=== PATIENT | male | born 1960 | race African-American/Black ===

== ENCOUNTER 2017-04-30 08:24 | Inpatient (IN) ==
[2017-04-30] MEDS ORDERED: NITROGLYCERIN 2% OINT 1 INCH/GM PACK TOP STA (08:52)
[2017-04-30] MEDS ORDERED: ASPIRIN 325 MG TABLET PO STA (08:52)
[2017-04-30 09:01] LABS: Basophils # 0.1 10*3/uL (0.0-0.2); Basophils % 1.9 % (0.0-0.8); Eosinophils # 0.4 10*3/uL (0.0-0.87); Eosinophils % 6.1 % (0.00-10.9); Hematocrit 48.3 VOL% (42.0-52.0); Hemoglobin 15.9 GM/DL (14.0-18.0); Immature Granulocytes % 0.2 %; Immature Granulocytes Absolute 0.01 #; Lymphocytes # 2.4 10*3/uL (1.4-4.0); Lymphocytes % 42.3 % (21.2-54.2); Mean Corpuscular HGB Conc 32.9 GM/DL (32-36); Mean Corpuscular Hemoglobin 29 PG (27-34); Mean Corpuscular Volume 87.2 FL (87-102); Mean Platelet Volume 11.2 FL (9.6-12.0); Monocytes # 0.6 10*3/uL (0.11-0.8); Monocytes % 9.6 % (1.7-12.7); Neutrophils # 2.3 10*3/uL (1.4-7.4); Neutrophils % 39.9 % (38.7-73.9); Platelet Count 224 T/CUMM (130-400); Red Blood Count 5.54 MC/CUMM (3.8-5.5); White Blood Count 5.7 T/CUMM (4-12)
[2017-04-30] MEDS ORDERED: NITROGLYCERIN 2% OINT 1 INCH/GM PACK TOP ONE (09:06)
[2017-04-30] MEDS ORDERED: ASPIRIN 325 MG TABLET ONE (09:06)
[2017-04-30 09:19] LABS: Albumin 3.3 G/DL (3.4-5.0); Bilirubin,Total 0.5 MG/DL (0.2-1.0); Calcium 8.8 MG/DL (8.5-10.1); Magnesium 1.9 MG/DL (1.8-2.4); Osmolality,Calculated 279.4 MOS/KG (273-304); Potassium 3.9 MMOL/L (3.5-5.1); Total Protein 7.9 G/DL (6.4-8.3)
[2017-04-30 09:20] LABS: PT Patient Result 10.6 SECS; Partial Thromboplastin Time 25.9 SECS (0-40)
[2017-04-30] MEDS ORDERED: MAGNESIUM SULF RIDER 2 GM in PREMIX 1 EACH IV PRN (09:57)
[2017-04-30] MEDS ORDERED: MAGNESIUM SULF RIDER 4 GM in PREMIX 1 EACH IV PRN (09:57)
[2017-04-30] MEDS ORDERED: ENOXAPARIN 100 MG/ML SYRINGE SUBCUT SCH (10:00)
[2017-04-30] MEDS ORDERED: traMADol 50 MG TABLET PO PRN (10:02)
[2017-04-30] MEDS ORDERED: ENOXAPARIN 100 MG/ML SYRINGE SUBCUT ONE (10:38)
[2017-04-30 10:43] LABS: Barbiturates Screen,Urine Negative (Negative); Benzodiazepines Screen,Urine Negative (Negative); Cannabinoid Screen,Urine Negative (Negative); Opiate Screen,Urine Positive (Negative); Phencyclidine Screen,Urine Negative (Negative)
[2017-04-30] MEDS ORDERED: CLOPIDOGREL 300 MG TABLET PO ONE (16:00)
[2017-04-30] MEDS: ATORVASTATIN 80 MG TABLET PO SCH (16:09)
[2017-04-30 17:23] LABS: CKMB % 1.8 %
[2017-04-30 17:26] LABS: Troponin I Only 0.433 NG/ML (0.00-0.045)
[2017-04-30] MEDS: NICOTINE 14 MG/24 HR PATCH TRANSDERM SCH (17:29)
[2017-04-30] MEDS: CARVEDILOL 25 MG TABLET PO SCH (20:40)
[2017-04-30] MEDS: ENOXAPARIN 80 MG/0.8 ML SYRINGE SUBCUT SCH (20:40)
[2017-04-30] MEDS: valACYclovir 500 MG TABLET PO SCH (20:40)
[2017-04-30] MEDS: hydrALAZINE 25 MG TABLET PO SCH (20:40)
[2017-04-30] MEDS ORDERED: ATORVASTATIN 40 MG TABLET PO SCH (21:00)
[2017-04-30] MEDS ORDERED: traZODone 50 MG TABLET PO SCH (21:00)
[2017-05-01 05:49] LABS: Basophils # 0.1 10*3/uL (0.0-0.2); Basophils % 1.5 % (0.0-0.8); Eosinophils # 0.3 10*3/uL (0.0-0.87); Eosinophils % 4.7 % (0.00-10.9); Hematocrit 46.4 VOL% (42.0-52.0); Hemoglobin 15.4 GM/DL (14.0-18.0); Immature Granulocytes % 0.3 %; Immature Granulocytes Absolute 0.02 #; Lymphocytes % 49.2 % (21.2-54.2); Mean Corpuscular HGB Conc 33.2 GM/DL (32-36); Mean Corpuscular Hemoglobin 29 PG (27-34); Mean Corpuscular Volume 87.9 FL (87-102); Mean Platelet Volume 12.1 FL (9.6-12.0); Monocytes # 0.6 10*3/uL (0.11-0.8); Monocytes % 9.3 % (1.7-12.7); Neutrophils # 2.1 10*3/uL (1.4-7.4); Platelet Count 227 T/CUMM (130-400); Red Blood Count 5.28 MC/CUMM (3.8-5.5)
[2017-05-01 06:47] LABS: Albumin 3.1 G/DL (3.4-5.0); Alkaline Phosphatase 117 U/L (45-117); Aspartate Amino Transferase 28 U/L (0-37); Blood Urea Nitrogen 13 MG/DL (7-18); Calcium 8.8 MG/DL (8.5-10.1); Glucose 145 MG/DL (74-106); Osmolality,Calculated 275.8 MOS/KG (273-304); Sodium 137 MMOL/L (136-145); Total Protein 7.3 G/DL (6.4-8.3)
[2017-05-01 07:28] LABS: Alanine Aminotransferase 29 U/L (16-61); Troponin I Only 0.226 NG/ML (0.00-0.045)
[2017-05-01] MEDS ORDERED: PANTOPRAZOLE 40 MG TABLET PO SCH (09:00)
[2017-05-01] MEDS ORDERED: DULoxetine 30 MG CAPSULE PO SCH (09:00)
[2017-05-01] MEDS ORDERED: ASPIRIN EC 81 MG TABLET PO SCH (09:00)
[2017-05-01] MEDS ORDERED: TAMSULOSIN 0.4 MG CAPSULE PO SCH (09:00)
[2017-05-01] MEDS ORDERED: LOSARTAN 50 MG TABLET PO SCH (09:00)
[2017-05-01] MEDS ORDERED: GABAPENTIN 300 MG CAPSULE PO SCH (09:00)
[2017-05-01] MEDS ORDERED: amLODIPine 10 MG TABLET PO SCH (09:00)
[2017-05-01] MEDS ORDERED: CLOPIDOGREL 75 MG TABLET PO SCH (09:00)
[2017-05-01] MEDS ORDERED: TRIAMTERENE/HCTZ 37.5-25 MG TABLET PO SCH (09:00)
[2017-05-01] MEDS: hydrALAZINE 25 MG TABLET PO SCH (09:03)
[2017-05-01] MEDS: ATORVASTATIN 80 MG TABLET PO SCH (09:04)
[2017-05-01] MEDS: NICOTINE 14 MG/24 HR PATCH TRANSDERM SCH (09:04)
[2017-05-01] MEDS: valACYclovir 500 MG TABLET PO SCH (09:04)
[2017-05-01] MEDS: ENOXAPARIN 80 MG/0.8 ML SYRINGE SUBCUT SCH (09:05)
[2017-05-01] MEDS: CARVEDILOL 25 MG TABLET PO SCH (09:05)
[2017-05-01 12:37] VITALS: BP 130/64
== END 2017-05-01 14:00 | disposition home or self-care (01) | DRG 282 ==
LOC: EDBD → EDUNIT# → N.ED 08:24 → N.EDINP 09:57 → N.TELES 12:35
PROVIDERS: ADMIT Internal Medicine Cardiovascular Disease; ATTEND Internal Medicine Cardiovascular Disease

== ENCOUNTER 2019-06-01 21:34 | Inpatient (IN) ==
[2019-06-01] MEDS ORDERED: ONDANSETRON 4 MG/2 ML VIAL IV STA (22:26)
[2019-06-01] MEDS ORDERED: PANTOPRAZOLE 40 MG VIAL IV STA (22:26)
[2019-06-01 22:27] LABS: Basophils # 0.1 10*3/uL (0.0-0.2); Eosinophils # 0.3 10*3/uL (0.0-0.87); Eosinophils % 4.2 % (0.00-10.9); Hematocrit 44.6 VOL% (42.0-52.0); Hemoglobin 13.8 GM/DL (14.0-18.0); Immature Granulocytes % 0.3 %; Immature Granulocytes Absolute 0.02 #; Lymphocytes # 2.3 10*3/uL (1.4-4.0); Lymphocytes % 33.7 % (21.2-54.2); Mean Corpuscular HGB Conc 30.9 GM/DL (32-36); Mean Corpuscular Volume 83.7 FL (87-102); Mean Platelet Volume 10.7 FL (9.6-12.0); Neutrophils % 53.8 % (38.7-73.9); Platelet Count 252 T/CUMM (130-400); Red Blood Count 5.33 MC/CUMM (3.8-5.5); White Blood Count 6.7 T/CUMM (4-12)
[2019-06-01 22:32] LABS: Apearance,Urine CLEAR (Clear); Bacteria,Urine Occasional /HPF (Few); Bilirubin,Urine Negative (Negative); Blood, Urine Negative (Negative); Glucose,Urine (UA) Negative (Negative); Ketones,Urine Negative (Negative); Nitrite,Urine Negative (Negative); Protein,Urine Negative; RBC,Urine 1 /HPF (0-4); Squamous Epithelial Cell,Urine Occasional /HPF (0-10); Urine Color Straw (Yellow); Urine Specific Gravity 1.013 (1.001-1.035); Urine Urobilinogen < 2.0 EU/DL (0.2-1.0); WBC,Urine <1 /HPF (0-6)
[2019-06-01] MEDS ORDERED: hydrALAZINE 20 MG/1 ML VIAL IV STA (22:32)
[2019-06-01 22:38] LABS: Barbiturates Screen,Urine Negative (Negative); Benzodiazepines Screen,Urine Negative (Negative); Cannabinoid Screen,Urine Negative (Negative); Opiate Screen,Urine Negative (Negative); Phencyclidine Screen,Urine Negative (Negative)
[2019-06-01 22:49] LABS: INR 1.2; PT Patient Result 13.3 SECS (9.6-12.2); Partial Thromboplastin Time 23.1 SECS (20.8-36.0)
[2019-06-01 23:05] LABS: Alanine Aminotransferase 25 U/L (16-61); Albumin 3.2 G/DL (3.4-5.0); Alkaline Phosphatase 120 U/L (45-117); Aspartate Amino Transferase 23 U/L (0-37); Bilirubin,Total < 0.39 MG/DL (0.2-1.0); Blood Urea Nitrogen 13 MG/DL (7-18); Calcium 8.5 MG/DL (8.5-10.1); Estimated Glom Filtration Rate 105 ML/MIN; Glucose 135 MG/DL (74-106); Osmolality,Calculated 280.4 MOS/KG (273-304); Total Protein 8.4 G/DL (6.4-8.3)
[2019-06-01] MEDS ORDERED: HEPARIN 1,000 UNIT/1 ML VIAL IV STA (23:32)
[2019-06-01 23:58] LABS: Troponin I 0.052 NG/ML (0.00-0.045)
[2019-06-02] MEDS ORDERED: HEPARIN 1,000 UNIT/1 ML VIAL ONE (00:24)
[2019-06-02] MEDS: niCARdipine INJ 25 MG in SODIUM CHLORIDE 0.9% 240 ML IV PRN ×4 (01:14→11:51)
[2019-06-02] MEDS: HEPARIN DRIP 25,000 UNITS/500 ML PREMIX IV SCH (01:38)
[2019-06-02 01:45] LABS: INR 1.5; Partial Thromboplastin Time 28.8 SECS (20.8-36.0)
[2019-06-02] MEDS ORDERED: MORPHINE 4 MG/1 ML VIAL IV STA (01:51)
[2019-06-02] MEDS ORDERED: GLUCAGON 1 MG VIAL IM PRN (02:23)
[2019-06-02] MEDS ORDERED: DEXTROSE 10% 250 ML BAG IV PRN (02:23)
[2019-06-02] MEDS ORDERED: NICOTINE 21 MG/24 HR PATCH TRANSDERM PRN (02:23)
[2019-06-02] MEDS ORDERED: ONDANSETRON 4 MG/2 ML VIAL IV PRN (02:23)
[2019-06-02 03:26] LABS: Risk Ratio 9.91; VLDL CHOLESTEROL 126.4 MG/DL
[2019-06-02 06:54] LABS: INR 1.6; PT Patient Result 17.3 SECS (9.6-12.2)
[2019-06-02 06:55] LABS: Partial Thromboplastin Time 43.5 SECS (20.8-36.0)
[2019-06-02] MEDS: INSULIN REGULAR 100 UNIT/ML SUBCUT SCH ×4 (08:13→20:50)
[2019-06-02 13:21] LABS: INR 1.7; PT Patient Result 18.3 SECS (9.6-12.2)
[2019-06-02 13:23] LABS: Partial Thromboplastin Time 41.3 SECS (20.8-36.0)
[2019-06-02] MEDS: amLODIPine 10 MG TABLET PO SCH (13:24)
[2019-06-02] MEDS: LOSARTAN 50 MG TABLET PO SCH (13:24)
[2019-06-02] MEDS: hydrALAZINE 25 MG TABLET PO SCH ×2 (15:38→20:24)
[2019-06-02] MEDS: carvediloL 12.5 MG TABLET PO SCH (18:35)
[2019-06-02 19:37] LABS: INR 1.8; PT Patient Result 19.2 SECS (9.6-12.2)
[2019-06-02 19:46] LABS: Partial Thromboplastin Time 41.9 SECS (20.8-36.0)
[2019-06-02] MEDS: ATORVASTATIN 80 MG TABLET PO SCH (20:24)
[2019-06-02] MEDS ORDERED: ATORVASTATIN 40 MG TABLET PO SCH (21:00)
[2019-06-03] MEDS: MORPHINE 4 MG/1 ML VIAL IV PRN ×3 (00:22→16:25)
[2019-06-03 01:20] LABS: INR 2.1
[2019-06-03 01:21] LABS: PT Patient Result 22.2 SECS (9.6-12.2)
[2019-06-03] MEDS: HEPARIN DRIP 25,000 UNITS/500 ML PREMIX IV SCH ×2 (03:30→13:57)
[2019-06-03 07:12] LABS: INR 1.8
[2019-06-03 07:22] LABS: Partial Thromboplastin Time 48.2 SECS (20.8-36.0)
[2019-06-03] MEDS: carvediloL 12.5 MG TABLET PO SCH (07:25)
[2019-06-03] MEDS: INSULIN REGULAR 100 UNIT/ML SUBCUT SCH ×4 (07:25→21:41)
[2019-06-03] MEDS: LOSARTAN 50 MG TABLET PO SCH (08:15)
[2019-06-03] MEDS: ASPIRIN EC 81 MG TABLET PO SCH (08:15)
[2019-06-03] MEDS: hydrALAZINE 25 MG TABLET PO SCH ×3 (08:16→21:41)
[2019-06-03] MEDS: amLODIPine 10 MG TABLET PO SCH (08:16)
[2019-06-03] MEDS ORDERED: ALBUTEROL 2.5 MG/3 ML NEB RESP TX PRN (08:18)
[2019-06-03] MEDS: GABAPENTIN 100 MG CAPSULE PO SCH ×3 (08:47→21:41)
[2019-06-03] MEDS: DULoxetine 30 MG CAPSULE PO SCH (08:47)
[2019-06-03] MEDS: TRIAMTERENE/HCTZ 37.5-25 MG TABLET PO SCH (12:59)
[2019-06-03 13:31] LABS: INR 1.7; PT Patient Result 18.5 SECS (9.6-12.2)
[2019-06-03] MEDS ORDERED: MAGNESIUM HYDROXIDE SUSP 30 ML UDCUP PO ONE (14:29)
[2019-06-03] MEDS ORDERED: WARFARIN 5 MG TABLET PO SCH (18:00)
[2019-06-03 19:59] LABS: INR 1.6; PT Patient Result 17.5 SECS (9.6-12.2); Partial Thromboplastin Time 49.7 SECS (20.8-36.0)
[2019-06-03] MEDS: ATORVASTATIN 80 MG TABLET PO SCH (21:40)
[2019-06-03] MEDS: traZODone 50 MG TABLET PO SCH (21:40)
[2019-06-04] MEDS: MORPHINE 4 MG/1 ML VIAL IV PRN ×2 (00:03→22:19)
[2019-06-04 01:55] LABS: Basophils # 0.1 10*3/uL (0.0-0.2); Basophils % 0.9 % (0.0-0.8); Eosinophils # 0.2 10*3/uL (0.0-0.87); Eosinophils % 2.5 % (0.00-10.9); Hematocrit 45.7 VOL% (42.0-52.0); Hemoglobin 14.4 GM/DL (14.0-18.0); Immature Granulocytes % 0.1 %; Immature Granulocytes Absolute 0.01 #; Lymphocytes # 2.4 10*3/uL (1.4-4.0); Lymphocytes % 31.6 % (21.2-54.2); Mean Corpuscular HGB Conc 31.5 GM/DL (32-36); Mean Platelet Volume 10.4 FL (9.6-12.0); Monocytes % 8.7 % (1.7-12.7); Neutrophils % 56.2 % (38.7-73.9); Platelet Count 257 T/CUMM (130-400); Red Blood Count 5.57 MC/CUMM (3.8-5.5); Red Cell Distribution Width 18.8 % (9.3-17.3); White Blood Count 7.6 T/CUMM (4-12)
[2019-06-04 02:06] LABS: INR 1.7; PT Patient Result 17.9 SECS (9.6-12.2)
[2019-06-04 02:10] LABS: Calcium 8.8 MG/DL (8.5-10.1); Osmolality,Calculated 261.5 MOS/KG (273-304)
[2019-06-04 02:14] LABS: Partial Thromboplastin Time 51.1 SECS (20.8-36.0)
[2019-06-04] MEDS: HEPARIN DRIP 25,000 UNITS/500 ML PREMIX IV SCH ×2 (02:51→23:36)
[2019-06-04] MEDS: INSULIN REGULAR 100 UNIT/ML SUBCUT SCH ×4 (08:04→21:13)
[2019-06-04] MEDS ORDERED: LACTULOSE 20 GM/30 ML UDCUP PO PRN (08:51)
[2019-06-04] MEDS: TRIAMTERENE/HCTZ 37.5-25 MG TABLET PO SCH (08:53)
[2019-06-04] MEDS: amLODIPine 10 MG TABLET PO SCH (08:53)
[2019-06-04] MEDS: ASPIRIN EC 81 MG TABLET PO SCH (08:53)
[2019-06-04] MEDS: LOSARTAN 50 MG TABLET PO SCH (08:54)
[2019-06-04] MEDS: DULoxetine 30 MG CAPSULE PO SCH (08:54)
[2019-06-04] MEDS: GABAPENTIN 100 MG CAPSULE PO SCH ×3 (08:54→21:12)
[2019-06-04] MEDS: hydrALAZINE 25 MG TABLET PO SCH ×3 (08:54→21:13)
[2019-06-04] MEDS ORDERED: WARFARIN 7.5 MG TABLET PO SCH (18:00)
[2019-06-04] MEDS: ATORVASTATIN 80 MG TABLET PO SCH (21:12)
[2019-06-04] MEDS: traZODone 50 MG TABLET PO SCH (21:12)
[2019-06-05 05:01] LABS: Basophils # 0.1 10*3/uL (0.0-0.2); Basophils % 0.6 % (0.0-0.8); Eosinophils # 0.1 10*3/uL (0.0-0.87); Eosinophils % 1.7 % (0.00-10.9); Hematocrit 44.6 VOL% (42.0-52.0); Hemoglobin 14.1 GM/DL (14.0-18.0); Immature Granulocytes % 0.5 %; Immature Granulocytes Absolute 0.04 #; Lymphocytes # 2.3 10*3/uL (1.4-4.0); Lymphocytes % 28.8 % (21.2-54.2); Mean Corpuscular HGB Conc 31.6 GM/DL (32-36); Mean Corpuscular Volume 81.8 FL (87-102); Mean Platelet Volume 11.2 FL (9.6-12.0); Monocytes % 12.4 % (1.7-12.7); Platelet Count 246 T/CUMM (130-400); Red Blood Count 5.45 MC/CUMM (3.8-5.5); Red Cell Distribution Width 17.5 % (9.3-17.3); White Blood Count 7.8 T/CUMM (4-12)
[2019-06-05 05:10] LABS: INR 1.5; PT Patient Result 16.4 SECS (9.6-12.2)
[2019-06-05 05:27] LABS: Calcium 8.9 MG/DL (8.5-10.1); Osmolality,Calculated 256.1 MOS/KG (273-304)
[2019-06-05] MEDS: INSULIN REGULAR 100 UNIT/ML SUBCUT SCH ×3 (08:05→18:10)
[2019-06-05] MEDS: GABAPENTIN 100 MG CAPSULE PO SCH ×3 (09:53→22:54)
[2019-06-05] MEDS: TRIAMTERENE/HCTZ 37.5-25 MG TABLET PO SCH (09:53)
[2019-06-05] MEDS: hydrALAZINE 25 MG TABLET PO SCH ×3 (09:54→22:51)
[2019-06-05] MEDS: ASPIRIN EC 81 MG TABLET PO SCH (09:54)
[2019-06-05] MEDS: amLODIPine 10 MG TABLET PO SCH (09:54)
[2019-06-05] MEDS: DULoxetine 30 MG CAPSULE PO SCH (09:54)
[2019-06-05] MEDS: LOSARTAN 50 MG TABLET PO SCH (09:54)
[2019-06-05] MEDS: ACETAMINOPHEN 325 MG TABLET PO PRN ×2 (10:48→18:55)
[2019-06-05] MEDS: HEPARIN DRIP 25,000 UNITS/500 ML PREMIX IV SCH (18:53)
[2019-06-05] MEDS: traZODone 50 MG TABLET PO SCH (22:52)
[2019-06-05] MEDS: ATORVASTATIN 80 MG TABLET PO SCH (22:55)
[2019-06-06] MEDS: HEPARIN DRIP 25,000 UNITS/500 ML PREMIX IV SCH (01:13)
[2019-06-06] MEDS: INSULIN REGULAR 100 UNIT/ML SUBCUT SCH ×4 (01:13→17:01)
[2019-06-06 04:55] LABS: Basophils # 0.1 10*3/uL (0.0-0.2); Basophils % 0.7 % (0.0-0.8); Eosinophils # 0.2 10*3/uL (0.0-0.87); Hematocrit 48.8 VOL% (42.0-52.0); Hemoglobin 15.5 GM/DL (14.0-18.0); Immature Granulocytes % 0.4 %; Immature Granulocytes Absolute 0.03 #; Lymphocytes # 1.8 10*3/uL (1.4-4.0); Lymphocytes % 23.8 % (21.2-54.2); Mean Corpuscular HGB Conc 31.8 GM/DL (32-36); Mean Corpuscular Volume 81.6 FL (87-102); Mean Platelet Volume 12.5 FL (9.6-12.0); Monocytes % 9.2 % (1.7-12.7); Neutrophils % 63.9 % (38.7-73.9); Platelet Count 222 T/CUMM (130-400); Red Blood Count 5.98 MC/CUMM (3.8-5.5); Red Cell Distribution Width 18.4 % (9.3-17.3); White Blood Count 7.4 T/CUMM (4-12)
[2019-06-06 04:56] LABS: INR 1.6
[2019-06-06 05:11] LABS: Calcium 9.3 MG/DL (8.5-10.1); Osmolality,Calculated 249.6 MOS/KG (273-304)
[2019-06-06 06:42] LABS: Rapid Plasma Reagin Confirm REACTIVE (Nonreactive)
[2019-06-06] MEDS: TRIAMTERENE/HCTZ 37.5-25 MG TABLET PO SCH (09:58)
[2019-06-06] MEDS: DULoxetine 30 MG CAPSULE PO SCH (09:58)
[2019-06-06] MEDS: amLODIPine 10 MG TABLET PO SCH (09:58)
[2019-06-06] MEDS: GABAPENTIN 100 MG CAPSULE PO SCH ×3 (09:58→23:19)
[2019-06-06] MEDS: LOSARTAN 50 MG TABLET PO SCH (09:58)
[2019-06-06] MEDS: ASPIRIN EC 81 MG TABLET PO SCH (09:58)
[2019-06-06] MEDS: hydrALAZINE 25 MG TABLET PO SCH ×3 (09:58→23:14)
[2019-06-06] MEDS: ACETAMINOPHEN 325 MG TABLET PO PRN (09:59)
[2019-06-06] MEDS ORDERED: BICILLIN LA 2,400,000 UNIT/4 ML SYRINGE IM SCH (10:30)
[2019-06-06] MEDS: APIXABAN 5 MG TABLET PO SCH ×2 (12:48→23:15)
[2019-06-06] MEDS: traZODone 50 MG TABLET PO SCH (23:19)
[2019-06-06] MEDS: ATORVASTATIN 80 MG TABLET PO SCH (23:19)
[2019-06-07] MEDS: INSULIN REGULAR 100 UNIT/ML SUBCUT SCH ×5 (00:04→21:29)
[2019-06-07 05:29] LABS: INR 1.3; PT Patient Result 14.5 SECS (9.6-12.2)
[2019-06-07] MEDS: LOSARTAN 50 MG TABLET PO SCH (09:08)
[2019-06-07] MEDS: DULoxetine 30 MG CAPSULE PO SCH (09:09)
[2019-06-07] MEDS: ASPIRIN EC 81 MG TABLET PO SCH (09:09)
[2019-06-07] MEDS: TRIAMTERENE/HCTZ 37.5-25 MG TABLET PO SCH (09:09)
[2019-06-07] MEDS: amLODIPine 10 MG TABLET PO SCH (09:09)
[2019-06-07] MEDS: APIXABAN 5 MG TABLET PO SCH ×2 (09:09→21:29)
[2019-06-07] MEDS: GABAPENTIN 100 MG CAPSULE PO SCH ×3 (09:09→21:29)
[2019-06-07] MEDS: hydrALAZINE 25 MG TABLET PO SCH ×3 (09:09→21:29)
[2019-06-07] MEDS: traZODone 50 MG TABLET PO SCH (21:29)
[2019-06-07] MEDS: ATORVASTATIN 80 MG TABLET PO SCH (21:29)
[2019-06-08 04:57] LABS: Basophils # 0.1 10*3/uL (0.0-0.2); Basophils % 0.5 % (0.0-0.8); Eosinophils # 0.2 10*3/uL (0.0-0.87); Hematocrit 43.7 VOL% (42.0-52.0); Hemoglobin 14.4 GM/DL (14.0-18.0); Immature Granulocytes % 0.5 %; Immature Granulocytes Absolute 0.05 #; Lymphocytes # 1.6 10*3/uL (1.4-4.0); Lymphocytes % 16.5 % (21.2-54.2); Mean Corpuscular Volume 79.5 FL (87-102); Mean Platelet Volume 11.7 FL (9.6-12.0); Monocytes % 10.3 % (1.7-12.7); Neutrophils % 70.2 % (38.7-73.9); Platelet Count 249 T/CUMM (130-400); Red Cell Distribution Width 18.3 % (9.3-17.3); White Blood Count 9.7 T/CUMM (4-12)
[2019-06-08 05:30] LABS: Albumin 3.3 G/DL (3.4-5.0); Bilirubin,Total 1.9 MG/DL (0.2-1.0); Calcium 9.4 MG/DL (8.5-10.1); Osmolality,Calculated 253.2 MOS/KG (273-304); Total Protein 8.8 G/DL (6.4-8.3)
[2019-06-08] MEDS: INSULIN REGULAR 100 UNIT/ML SUBCUT SCH ×3 (07:30→15:47)
[2019-06-08] MEDS: ASPIRIN EC 81 MG TABLET PO SCH (09:30)
[2019-06-08] MEDS: TRIAMTERENE/HCTZ 37.5-25 MG TABLET PO SCH (09:30)
[2019-06-08] MEDS: amLODIPine 10 MG TABLET PO SCH (09:30)
[2019-06-08] MEDS: GABAPENTIN 100 MG CAPSULE PO SCH ×2 (09:30→15:10)
[2019-06-08] MEDS: DULoxetine 30 MG CAPSULE PO SCH (09:30)
[2019-06-08] MEDS: APIXABAN 5 MG TABLET PO SCH (09:30)
[2019-06-08] MEDS: hydrALAZINE 25 MG TABLET PO SCH ×2 (09:30→15:09)
[2019-06-08] MEDS: LOSARTAN 50 MG TABLET PO SCH (09:30)
[2019-06-08 16:09] VITALS: BP 86/44
[2019-06-12] MEDS ORDERED: BICILLIN LA 2,400,000 UNIT/4 ML SYRINGE IM SCH (15:08)
== END 2019-06-08 17:31 | DRG 65 ==
LOC: EDBD → EDUNIT# → N.ED 21:34 → SUATTDRO 06-02 02:23 → N.EDINP 06-02 02:23 → N.ICU 06-02 03:04 → N.TELEN 06-03 10:56
PROVIDERS: ADMIT Internal Medicine Geriatric Medicine; ATTEND Internal Medicine

== ENCOUNTER 2019-06-20 15:19 | Inpatient (IN) ==
[2019-06-20 16:22] LABS: Basophils # 0.1 10*3/uL (0.0-0.2); Basophils % 0.4 % (0.0-0.8); Eosinophils # 0.1 10*3/uL (0.0-0.87); Eosinophils % 0.3 % (0.00-10.9); Hematocrit 24.7 VOL% (42.0-52.0); Hemoglobin 7.7 GM/DL (14.0-18.0); Immature Granulocytes % 0.9 %; Immature Granulocytes Absolute 0.18 #; Lymphocytes # 2.2 10*3/uL (1.4-4.0); Lymphocytes % 11.1 % (21.2-54.2); Mean Corpuscular HGB Conc 31.2 GM/DL (32-36); Mean Corpuscular Volume 85.2 FL (87-102); Monocytes % 5.3 % (1.7-12.7); Platelet Count 582 T/CUMM (130-400); Red Cell Distribution Width 18.4 % (9.3-17.3); White Blood Count 20.1 T/CUMM (4-12)
[2019-06-20] MEDS ORDERED: SODIUM CHLORIDE 0.9% 1,000 ML IV STA ×2 (16:33→17:53)
[2019-06-20 16:36] LABS: Calcium 9.2 MG/DL (8.5-10.1); Osmolality,Calculated 288.8 MOS/KG (273-304)
[2019-06-20 17:09] LABS: Anisocytosis Slight; Hypochromasia Slight; Lymphocytes 9 % (20-55); Microcytosis Slight; Platelet Estimate Increased; Polychromasia Few; Segmented Neutrophils 89 % (50-85); Total Cells Counted 100
[2019-06-20] MEDS ORDERED: LABETALOL 100 MG/20 ML VIAL IV PRN (18:41)
[2019-06-20] MEDS ORDERED: GLUCAGON 1 MG VIAL IM PRN (18:41)
[2019-06-20] MEDS ORDERED: ONDANSETRON 4 MG/2 ML VIAL IV PRN (18:41)
[2019-06-20] MEDS ORDERED: DEXTROSE 10% 250 ML BAG IV PRN (18:41)
[2019-06-20] MEDS ORDERED: SODIUM CHLORIDE 0.9% 1,000 ML IV PRN (18:58)
[2019-06-20] MEDS ORDERED: FUROSEMIDE 20 MG/2 ML VIAL IV PRN (18:58)
[2019-06-20 19:35] LABS: Risk Ratio 3.07; VLDL CHOLESTEROL 21.4 MG/DL
[2019-06-20] MEDS: SODIUM CHLORIDE 0.9% 1,000 ML IV SCH (22:16)
[2019-06-20] MEDS: PIPERACILLIN/TAZOBACTAM 3,375 MG in SODIUM CHLORIDE 0.9% 100 ML IV SCH (22:17)
[2019-06-20] MEDS: INSULIN LISPRO 100 UNIT/ML SUBCUT SCH (22:17)
[2019-06-21] MEDS: SODIUM CHLORIDE 0.9% 1,000 ML IV SCH ×2 (03:49→15:50)
[2019-06-21 04:06] LABS: Hematocrit 26.2 VOL% (42.0-52.0); Hemoglobin 8.2 GM/DL (14.0-18.0)
[2019-06-21] MEDS: PIPERACILLIN/TAZOBACTAM 3,375 MG in SODIUM CHLORIDE 0.9% 100 ML IV SCH (04:52)
[2019-06-21 06:01] LABS: Basophils # 0.1 10*3/uL (0.0-0.2); Basophils % 0.5 % (0.0-0.8); Eosinophils # 0.1 10*3/uL (0.0-0.87); Eosinophils % 0.7 % (0.00-10.9); Hemoglobin 8.2 GM/DL (14.0-18.0); Immature Granulocytes % 0.7 %; Immature Granulocytes Absolute 0.11 #; Lymphocytes # 1.7 10*3/uL (1.4-4.0); Lymphocytes % 10.8 % (21.2-54.2); Mean Corpuscular HGB Conc 31.5 GM/DL (32-36); Mean Corpuscular Volume 85.8 FL (87-102); Mean Platelet Volume 9.1 FL (9.6-12.0); Monocytes % 5.5 % (1.7-12.7); Neutrophils % 81.8 % (38.7-73.9); Platelet Count 504 T/CUMM (130-400); Red Blood Count 3.03 MC/CUMM (3.8-5.5); Red Cell Distribution Width 17.2 % (9.3-17.3); White Blood Count 15.3 T/CUMM (4-12)
[2019-06-21 06:23] LABS: Osmolality,Calculated 287.3 MOS/KG (273-304)
[2019-06-21] MEDS: MEROPENEM 500 MG in SODIUM CHLORIDE 0.9% 100 ML IV SCH ×3 (10:27→22:32)
[2019-06-21] MEDS: INSULIN LISPRO 100 UNIT/ML SUBCUT SCH ×4 (10:29→22:16)
[2019-06-21 12:01] LABS: Barbiturates Screen,Urine Negative (Negative); Benzodiazepines Screen,Urine Negative (Negative); Cannabinoid Screen,Urine Negative (Negative); Opiate Screen,Urine Positive (Negative); Phencyclidine Screen,Urine Negative (Negative)
[2019-06-21] MEDS: SODIUM HYPOCHLORITE 0.25% IRRIG 473 ML BOTTLE TOP SCH (15:51)
[2019-06-21] MEDS ORDERED: hydrALAZINE 20 MG/1 ML VIAL IV PRN (16:42)
[2019-06-21] MEDS ORDERED: LOSARTAN 50 MG TABLET PO SCH (16:45)
[2019-06-21] MEDS: carvediloL 6.25 MG TABLET PO SCH ×2 (17:38→20:52)
[2019-06-21] MEDS: ATORVASTATIN 80 MG TABLET PO SCH (20:52)
[2019-06-22] MEDS: MEROPENEM 500 MG in SODIUM CHLORIDE 0.9% 100 ML IV SCH ×3 (03:54→20:00)
[2019-06-22 06:04] LABS: Basophils # 0.1 10*3/uL (0.0-0.2); Basophils % 0.8 % (0.0-0.8); Eosinophils # 0.2 10*3/uL (0.0-0.87); Eosinophils % 1.2 % (0.00-10.9); Hematocrit 24.1 VOL% (42.0-52.0); Hemoglobin 7.6 GM/DL (14.0-18.0); Immature Granulocytes % 0.7 %; Immature Granulocytes Absolute 0.09 #; Lymphocytes # 2.7 10*3/uL (1.4-4.0); Lymphocytes % 19.5 % (21.2-54.2); Mean Corpuscular HGB Conc 31.5 GM/DL (32-36); Mean Corpuscular Volume 86.4 FL (87-102); Mean Platelet Volume 9.2 FL (9.6-12.0); Monocytes % 6.7 % (1.7-12.7); Neutrophils % 71.1 % (38.7-73.9); Platelet Count 455 T/CUMM (130-400); Red Blood Count 2.79 MC/CUMM (3.8-5.5); Red Cell Distribution Width 16.9 % (9.3-17.3); White Blood Count 13.8 T/CUMM (4-12)
[2019-06-22 06:15] LABS: Osmolality,Calculated 273.8 MOS/KG (273-304)
[2019-06-22] MEDS: INSULIN LISPRO 100 UNIT/ML SUBCUT SCH ×4 (08:24→21:45)
[2019-06-22] MEDS: carvediloL 6.25 MG TABLET PO SCH ×2 (09:23→21:45)
[2019-06-22] MEDS: levETIRAcetam 500 MG TABLET PO SCH ×2 (09:23→21:45)
[2019-06-22] MEDS: FOLIC ACID 1 MG TABLET PO SCH (09:23)
[2019-06-22] MEDS: LACTULOSE 20 GM/30 ML UDCUP PO PRN (09:58)
[2019-06-22] MEDS ORDERED: FUROSEMIDE 40 MG/4 ML VIAL IV ONE (11:37)
[2019-06-22] MEDS ORDERED: SODIUM CHLORIDE 0.9% 1,000 ML IV PRN (11:37)
[2019-06-22] MEDS: SODIUM HYPOCHLORITE 0.25% IRRIG 473 ML BOTTLE TOP SCH (12:30)
[2019-06-22] MEDS: ACETAMINOPHEN 325 MG TABLET PO PRN ×2 (15:59→21:46)
[2019-06-22] MEDS: ATORVASTATIN 80 MG TABLET PO SCH (21:45)
[2019-06-23] MEDS: MEROPENEM 500 MG in SODIUM CHLORIDE 0.9% 100 ML IV SCH ×4 (01:24→21:32)
[2019-06-23 05:53] LABS: Basophils # 0.1 10*3/uL (0.0-0.2); Basophils % 0.8 % (0.0-0.8); Eosinophils # 0.3 10*3/uL (0.0-0.87); Eosinophils % 2.3 % (0.00-10.9); Hematocrit 30.3 VOL% (42.0-52.0); Hemoglobin 9.8 GM/DL (14.0-18.0); Immature Granulocytes % 0.7 %; Immature Granulocytes Absolute 0.08 #; Lymphocytes # 2.1 10*3/uL (1.4-4.0); Lymphocytes % 19.1 % (21.2-54.2); Mean Corpuscular HGB Conc 32.3 GM/DL (32-36); Mean Corpuscular Volume 83.5 FL (87-102); Mean Platelet Volume 9.2 FL (9.6-12.0); Monocytes % 5.8 % (1.7-12.7); Neutrophils % 71.3 % (38.7-73.9); Platelet Count 437 T/CUMM (130-400); Red Blood Count 3.63 MC/CUMM (3.8-5.5); Red Cell Distribution Width 16.5 % (9.3-17.3); White Blood Count 11.2 T/CUMM (4-12)
[2019-06-23 06:15] LABS: Calcium 8.7 MG/DL (8.5-10.1); Osmolality,Calculated 274.7 MOS/KG (273-304)
[2019-06-23] MEDS: INSULIN LISPRO 100 UNIT/ML SUBCUT SCH ×4 (08:46→22:02)
[2019-06-23] MEDS: carvediloL 6.25 MG TABLET PO SCH ×2 (08:48→21:27)
[2019-06-23] MEDS: FOLIC ACID 1 MG TABLET PO SCH (08:48)
[2019-06-23] MEDS: levETIRAcetam 500 MG TABLET PO SCH ×2 (08:48→21:27)
[2019-06-23] MEDS ORDERED: PANTOPRAZOLE 40 MG TABLET PO SCH (09:00)
[2019-06-23] MEDS: SODIUM HYPOCHLORITE 0.25% IRRIG 473 ML BOTTLE TOP SCH (09:59)
[2019-06-23] MEDS: ALUMINUM/MAGNES/SIMETH MAX STR 30 ML UDCUP PO PRN (09:59)
[2019-06-23] MEDS: oxyCODONE/ACETAMINOPHEN 5-325 MG TABLET PO PRN ×2 (10:00→15:55)
[2019-06-23] MEDS: ATORVASTATIN 80 MG TABLET PO SCH (21:27)
[2019-06-23] MEDS: PANTOPRAZOLE 40 MG TABLET PO SCH (21:27)
[2019-06-24] MEDS: MEROPENEM 500 MG in SODIUM CHLORIDE 0.9% 100 ML IV SCH ×4 (02:47→20:09)
[2019-06-24 05:24] LABS: Basophils # 0.1 10*3/uL (0.0-0.2); Basophils % 0.7 % (0.0-0.8); Eosinophils # 0.1 10*3/uL (0.0-0.87); Eosinophils % 0.7 % (0.00-10.9); Hematocrit 35.6 VOL% (42.0-52.0); Hemoglobin 11.1 GM/DL (14.0-18.0); Immature Granulocytes % 0.7 %; Lymphocytes % 13.1 % (21.2-54.2); Mean Corpuscular HGB Conc 31.2 GM/DL (32-36); Mean Platelet Volume 9.5 FL (9.6-12.0); Monocytes % 4.4 % (1.7-12.7); NRBC # 0.02 10*3/uL; Neutrophils % 80.4 % (38.7-73.9); Platelet Count 544 T/CUMM (130-400); Red Blood Count 4.14 MC/CUMM (3.8-5.5); Red Cell Distribution Width 16.8 % (9.3-17.3); White Blood Count 15.3 T/CUMM (4-12)
[2019-06-24 05:52] LABS: Calcium 9.5 MG/DL (8.5-10.1); Osmolality,Calculated 268.2 MOS/KG (273-304)
[2019-06-24] MEDS: INSULIN LISPRO 100 UNIT/ML SUBCUT SCH ×4 (08:20→20:27)
[2019-06-24] MEDS: FOLIC ACID 1 MG TABLET PO SCH (08:41)
[2019-06-24] MEDS: carvediloL 6.25 MG TABLET PO SCH ×2 (08:41→21:04)
[2019-06-24] MEDS: PANTOPRAZOLE 40 MG TABLET PO SCH ×2 (08:41→21:04)
[2019-06-24] MEDS: levETIRAcetam 500 MG TABLET PO SCH ×2 (08:41→21:04)
[2019-06-24] MEDS: SODIUM HYPOCHLORITE 0.25% IRRIG 473 ML BOTTLE TOP SCH (08:42)
[2019-06-24] MEDS ORDERED: BISACODYL 10 MG SUPP RECTAL PRN (09:24)
[2019-06-24] MEDS: DOCUSATE/SENNA 50-8.6 MG TABLET PO SCH ×2 (10:54→21:04)
[2019-06-24] MEDS: SODIUM CHLORIDE 0.9% 1,000 ML IV SCH (10:55)
[2019-06-24] MEDS: oxyCODONE/ACETAMINOPHEN 5-325 MG TABLET PO PRN ×2 (15:42→22:45)
[2019-06-24] MEDS: ATORVASTATIN 80 MG TABLET PO SCH (21:04)
[2019-06-25] MEDS: SODIUM CHLORIDE 0.9% 1,000 ML IV SCH ×2 (01:15→15:25)
[2019-06-25] MEDS: MEROPENEM 500 MG in SODIUM CHLORIDE 0.9% 100 ML IV SCH ×4 (02:02→21:15)
[2019-06-25] MEDS: ALUMINUM/MAGNES/SIMETH MAX STR 30 ML UDCUP PO PRN (02:05)
[2019-06-25 06:54] LABS: Basophils # 0.1 10*3/uL (0.0-0.2); Basophils % 1.1 % (0.0-0.8); Eosinophils # 0.4 10*3/uL (0.0-0.87); Eosinophils % 3.7 % (0.00-10.9); Hematocrit 30.4 VOL% (42.0-52.0); Hemoglobin 9.5 GM/DL (14.0-18.0); Immature Granulocytes % 0.6 %; Immature Granulocytes Absolute 0.06 #; Lymphocytes # 2.1 10*3/uL (1.4-4.0); Lymphocytes % 20.2 % (21.2-54.2); Mean Corpuscular HGB Conc 31.3 GM/DL (32-36); Mean Corpuscular Volume 86.1 FL (87-102); Mean Platelet Volume 9.1 FL (9.6-12.0); Neutrophils % 67.4 % (38.7-73.9); Platelet Count 403 T/CUMM (130-400); Red Blood Count 3.53 MC/CUMM (3.8-5.5); Red Cell Distribution Width 16.5 % (9.3-17.3); White Blood Count 10.5 T/CUMM (4-12)
[2019-06-25 07:16] LABS: Calcium 8.3 MG/DL (8.5-10.1); Osmolality,Calculated 273.8 MOS/KG (273-304)
[2019-06-25] MEDS: FOLIC ACID 1 MG TABLET PO SCH (08:55)
[2019-06-25] MEDS: carvediloL 6.25 MG TABLET PO SCH ×2 (08:55→21:15)
[2019-06-25] MEDS: oxyCODONE/ACETAMINOPHEN 5-325 MG TABLET PO PRN ×2 (08:55→18:43)
[2019-06-25] MEDS: levETIRAcetam 500 MG TABLET PO SCH ×2 (08:55→21:15)
[2019-06-25] MEDS: PANTOPRAZOLE 40 MG TABLET PO SCH ×2 (08:55→21:15)
[2019-06-25] MEDS: SODIUM HYPOCHLORITE 0.25% IRRIG 473 ML BOTTLE TOP SCH (08:56)
[2019-06-25] MEDS: DOCUSATE/SENNA 50-8.6 MG TABLET PO SCH ×2 (08:56→21:15)
[2019-06-25] MEDS: INSULIN LISPRO 100 UNIT/ML SUBCUT SCH ×4 (08:56→21:17)
[2019-06-25] MEDS: ATORVASTATIN 80 MG TABLET PO SCH (21:15)
[2019-06-26] MEDS: MEROPENEM 500 MG in SODIUM CHLORIDE 0.9% 100 ML IV SCH ×4 (02:58→21:45)
[2019-06-26 05:06] LABS: Basophils # 0.1 10*3/uL (0.0-0.2); Basophils % 1.1 % (0.0-0.8); Eosinophils # 0.4 10*3/uL (0.0-0.87); Eosinophils % 4.2 % (0.00-10.9); Hematocrit 29.5 VOL% (42.0-52.0); Hemoglobin 9.3 GM/DL (14.0-18.0); Immature Granulocytes % 0.7 %; Immature Granulocytes Absolute 0.07 #; Lymphocytes # 2.1 10*3/uL (1.4-4.0); Lymphocytes % 19.9 % (21.2-54.2); Mean Corpuscular HGB Conc 31.5 GM/DL (32-36); Mean Corpuscular Volume 86.3 FL (87-102); Monocytes % 6.2 % (1.7-12.7); Neutrophils % 67.9 % (38.7-73.9); Platelet Count 349 T/CUMM (130-400); Red Blood Count 3.42 MC/CUMM (3.8-5.5); Red Cell Distribution Width 16.7 % (9.3-17.3); White Blood Count 10.4 T/CUMM (4-12)
[2019-06-26 05:37] LABS: Calcium 8.4 MG/DL (8.5-10.1); Osmolality,Calculated 277.4 MOS/KG (273-304)
[2019-06-26] MEDS: SODIUM CHLORIDE 0.9% 1,000 ML IV SCH ×2 (06:20→18:23)
[2019-06-26] MEDS: oxyCODONE/ACETAMINOPHEN 5-325 MG TABLET PO PRN (06:20)
[2019-06-26] MEDS: PANTOPRAZOLE 40 MG TABLET PO SCH ×3 (08:11→21:46)
[2019-06-26] MEDS: FOLIC ACID 1 MG TABLET PO SCH (08:11)
[2019-06-26] MEDS: carvediloL 6.25 MG TABLET PO SCH ×3 (08:11→21:46)
[2019-06-26] MEDS: LACTATED RINGERS 1,000 ML IV SCH (08:12)
[2019-06-26] MEDS: INSULIN LISPRO 100 UNIT/ML SUBCUT SCH ×4 (08:13→21:51)
[2019-06-26] MEDS: SODIUM HYPOCHLORITE 0.25% IRRIG 473 ML BOTTLE TOP SCH (08:18)
[2019-06-26] MEDS: DOCUSATE/SENNA 50-8.6 MG TABLET PO SCH ×2 (08:19→21:46)
[2019-06-26] MEDS: levETIRAcetam 500 MG TABLET PO SCH ×2 (08:19→21:46)
[2019-06-26] MEDS ORDERED: ETOMIDATE 20 MG/10 ML VIAL IV ONE (09:00)
[2019-06-26] MEDS ORDERED: propofoL 200 MG/20 ML VIAL IV ONE (09:00)
[2019-06-26] MEDS ORDERED: LIDOCAINE 2% 5 ML VIAL ONE (09:00)
[2019-06-26] MEDS: LOSARTAN 25 MG TABLET PO SCH ×2 (10:45→21:47)
[2019-06-26] MEDS ORDERED: TUBERCULIN SKIN TEST 0.1 ML SYRINGE INTRADERM ONE (14:11)
[2019-06-26] MEDS: ATORVASTATIN 80 MG TABLET PO SCH (21:46)
[2019-06-27] MEDS: MEROPENEM 500 MG in SODIUM CHLORIDE 0.9% 100 ML IV SCH ×4 (02:37→21:06)
[2019-06-27 04:40] LABS: Basophils # 0.1 10*3/uL (0.0-0.2); Eosinophils # 0.3 10*3/uL (0.0-0.87); Eosinophils % 3.4 % (0.00-10.9); Hematocrit 32.2 VOL% (42.0-52.0); Immature Granulocytes % 0.5 %; Immature Granulocytes Absolute 0.05 #; Lymphocytes # 1.8 10*3/uL (1.4-4.0); Lymphocytes % 17.6 % (21.2-54.2); Mean Corpuscular HGB Conc 31.1 GM/DL (32-36); Mean Corpuscular Volume 86.8 FL (87-102); Mean Platelet Volume 9.5 FL (9.6-12.0); Monocytes % 6.3 % (1.7-12.7); Neutrophils % 71.2 % (38.7-73.9); Platelet Count 363 T/CUMM (130-400); Red Blood Count 3.71 MC/CUMM (3.8-5.5); Red Cell Distribution Width 16.5 % (9.3-17.3); White Blood Count 10.1 T/CUMM (4-12)
[2019-06-27 05:17] LABS: Calcium 8.9 MG/DL (8.5-10.1)
[2019-06-27] MEDS: INSULIN LISPRO 100 UNIT/ML SUBCUT SCH ×4 (08:27→21:09)
[2019-06-27] MEDS: LACTATED RINGERS 1,000 ML IV SCH (08:27)
[2019-06-27] MEDS: carvediloL 6.25 MG TABLET PO SCH ×2 (08:29→21:07)
[2019-06-27] MEDS: FOLIC ACID 1 MG TABLET PO SCH (08:29)
[2019-06-27] MEDS: LOSARTAN 25 MG TABLET PO SCH ×2 (08:29→21:08)
[2019-06-27] MEDS: SODIUM CHLORIDE 0.9% 1,000 ML IV SCH ×2 (08:29→19:35)
[2019-06-27] MEDS: SODIUM HYPOCHLORITE 0.25% IRRIG 473 ML BOTTLE TOP SCH (08:29)
[2019-06-27] MEDS: levETIRAcetam 500 MG TABLET PO SCH ×2 (08:30→21:08)
[2019-06-27] MEDS: DOCUSATE/SENNA 50-8.6 MG TABLET PO SCH ×2 (08:31→21:07)
[2019-06-27] MEDS: PANTOPRAZOLE 40 MG TABLET PO SCH ×2 (08:31→21:08)
[2019-06-27] MEDS: oxyCODONE/ACETAMINOPHEN 5-325 MG TABLET PO PRN (21:07)
[2019-06-27] MEDS: ATORVASTATIN 80 MG TABLET PO SCH (21:07)
[2019-06-28] MEDS: MEROPENEM 500 MG in SODIUM CHLORIDE 0.9% 100 ML IV SCH ×3 (03:16→14:07)
[2019-06-28 04:54] LABS: Basophils # 0.1 10*3/uL (0.0-0.2); Basophils % 0.7 % (0.0-0.8); Eosinophils # 0.4 10*3/uL (0.0-0.87); Eosinophils % 3.9 % (0.00-10.9); Hematocrit 32.6 VOL% (42.0-52.0); Hemoglobin 10.2 GM/DL (14.0-18.0); Immature Granulocytes % 0.4 %; Immature Granulocytes Absolute 0.04 #; Lymphocytes # 2.1 10*3/uL (1.4-4.0); Lymphocytes % 21.7 % (21.2-54.2); Mean Corpuscular HGB Conc 31.3 GM/DL (32-36); Mean Platelet Volume 9.8 FL (9.6-12.0); Monocytes % 7.1 % (1.7-12.7); Neutrophils % 66.2 % (38.7-73.9); Platelet Count 362 T/CUMM (130-400); Red Blood Count 3.79 MC/CUMM (3.8-5.5); Red Cell Distribution Width 16.4 % (9.3-17.3); White Blood Count 9.7 T/CUMM (4-12)
[2019-06-28 05:15] LABS: Calcium 8.5 MG/DL (8.5-10.1); Osmolality,Calculated 277.7 MOS/KG (273-304)
[2019-06-28] MEDS: SODIUM CHLORIDE 0.9% 1,000 ML IV SCH ×3 (05:39→22:57)
[2019-06-28] MEDS: oxyCODONE/ACETAMINOPHEN 5-325 MG TABLET PO PRN ×2 (06:19→18:22)
[2019-06-28] MEDS: LACTATED RINGERS 1,000 ML IV SCH (08:14)
[2019-06-28] MEDS: INSULIN LISPRO 100 UNIT/ML SUBCUT SCH ×4 (08:41→22:58)
[2019-06-28] MEDS: levETIRAcetam 500 MG TABLET PO SCH ×2 (08:51→21:17)
[2019-06-28] MEDS: FOLIC ACID 1 MG TABLET PO SCH (08:51)
[2019-06-28] MEDS: carvediloL 6.25 MG TABLET PO SCH ×2 (08:52→21:17)
[2019-06-28] MEDS: PANTOPRAZOLE 40 MG TABLET PO SCH ×2 (08:52→21:17)
[2019-06-28] MEDS: LOSARTAN 25 MG TABLET PO SCH ×2 (08:52→21:17)
[2019-06-28] MEDS: SODIUM HYPOCHLORITE 0.25% IRRIG 473 ML BOTTLE TOP SCH (08:53)
[2019-06-28] MEDS: DOCUSATE/SENNA 50-8.6 MG TABLET PO SCH ×2 (08:53→21:17)
[2019-06-28 12:04] LABS: Appearance,CSF Clear; Lymphocytes,CSF 79 %; Monocytes,CSF 20 %; Neutrophils,CSF 1 %; Red Blood Cell,CSF < 1 C/CUMM; White Blood Cell,CSF 48 C/CUMM
[2019-06-28 12:45] LABS: Glucose,CSF 61 MG/DL (40-70)
[2019-06-28] MEDS: PENICILLIN G POTASSIUM INJ 4,000,000 UNIT in SODIUM CHLORIDE 0.9% 100 ML IV SCH ×2 (18:22→21:33)
[2019-06-28] MEDS: ATORVASTATIN 80 MG TABLET PO SCH (21:17)
[2019-06-29] MEDS: PENICILLIN G POTASSIUM INJ 4,000,000 UNIT in SODIUM CHLORIDE 0.9% 100 ML IV SCH ×6 (01:38→21:21)
[2019-06-29] MEDS: SODIUM CHLORIDE 0.9% 1,000 ML IV SCH ×3 (04:12→23:02)
[2019-06-29] MEDS: LACTATED RINGERS 1,000 ML IV SCH (07:21)
[2019-06-29] MEDS: INSULIN LISPRO 100 UNIT/ML SUBCUT SCH ×4 (08:40→21:19)
[2019-06-29] MEDS: LOSARTAN 50 MG TABLET PO SCH ×2 (09:57→21:20)
[2019-06-29] MEDS: levETIRAcetam 500 MG TABLET PO SCH ×2 (09:57→21:20)
[2019-06-29] MEDS: ASPIRIN EC 81 MG TABLET PO SCH (09:57)
[2019-06-29] MEDS: FOLIC ACID 1 MG TABLET PO SCH (09:57)
[2019-06-29] MEDS: PANTOPRAZOLE 40 MG TABLET PO SCH ×2 (09:57→21:20)
[2019-06-29] MEDS: DOCUSATE/SENNA 50-8.6 MG TABLET PO SCH ×2 (09:57→21:20)
[2019-06-29] MEDS: carvediloL 6.25 MG TABLET PO SCH ×2 (09:57→21:20)
[2019-06-29] MEDS ORDERED: BISACODYL 5 MG TABLET PO ONE (12:00)
[2019-06-29] MEDS: SODIUM HYPOCHLORITE 0.25% IRRIG 473 ML BOTTLE TOP SCH (13:30)
[2019-06-29] MEDS ORDERED: POLYETHYLENE GLYCOL POWDER 255 GM BOTTLE PO ONE (15:00)
[2019-06-29] MEDS: ALPRAZolam 0.25 MG TABLET PO SCH (21:20)
[2019-06-29] MEDS: ATORVASTATIN 80 MG TABLET PO SCH (21:20)
[2019-06-30] MEDS: PENICILLIN G POTASSIUM INJ 4,000,000 UNIT in SODIUM CHLORIDE 0.9% 100 ML IV SCH ×6 (02:06→23:15)
[2019-06-30] MEDS ORDERED: MAGNESIUM CITRATE 300 ML BOTTLE PO ONE (06:00)
[2019-06-30 06:36] LABS: Basophils # 0.1 10*3/uL (0.0-0.2); Basophils % 0.5 % (0.0-0.8); Eosinophils # 0.3 10*3/uL (0.0-0.87); Eosinophils % 3.6 % (0.00-10.9); Hematocrit 32.7 VOL% (42.0-52.0); Immature Granulocytes % 0.3 %; Immature Granulocytes Absolute 0.03 #; Lymphocytes # 2.1 10*3/uL (1.4-4.0); Lymphocytes % 22.4 % (21.2-54.2); Mean Corpuscular HGB Conc 30.6 GM/DL (32-36); Mean Corpuscular Volume 86.7 FL (87-102); Mean Platelet Volume 9.3 FL (9.6-12.0); Monocytes % 6.6 % (1.7-12.7); Neutrophils % 66.6 % (38.7-73.9); Platelet Count 292 T/CUMM (130-400); Red Blood Count 3.77 MC/CUMM (3.8-5.5); Red Cell Distribution Width 16.4 % (9.3-17.3); White Blood Count 9.2 T/CUMM (4-12)
[2019-06-30 06:44] LABS: INR 1.1; PT Patient Result 11.8 SECS (9.6-12.2)
[2019-06-30 07:02] LABS: Calcium 8.6 MG/DL (8.5-10.1); Osmolality,Calculated 271.7 MOS/KG (273-304)
[2019-06-30] MEDS: SODIUM HYPOCHLORITE 0.25% IRRIG 473 ML BOTTLE TOP SCH (08:27)
[2019-06-30] MEDS: INSULIN LISPRO 100 UNIT/ML SUBCUT SCH ×4 (08:43→20:56)
[2019-06-30 09:54] LABS: RPR Confirm - Less than 1 yr REACTIVE (Nonreactive)
[2019-06-30] MEDS: FOLIC ACID 1 MG TABLET PO SCH (11:06)
[2019-06-30] MEDS: PANTOPRAZOLE 40 MG TABLET PO SCH ×2 (11:06→21:14)
[2019-06-30] MEDS: LOSARTAN 50 MG TABLET PO SCH ×2 (11:06→21:13)
[2019-06-30] MEDS: ALPRAZolam 0.25 MG TABLET PO SCH ×2 (11:06→21:14)
[2019-06-30] MEDS: ASPIRIN EC 81 MG TABLET PO SCH (11:06)
[2019-06-30] MEDS: carvediloL 6.25 MG TABLET PO SCH ×2 (11:07→21:14)
[2019-06-30] MEDS: DOCUSATE/SENNA 50-8.6 MG TABLET PO SCH ×2 (11:07→21:13)
[2019-06-30] MEDS: levETIRAcetam 500 MG TABLET PO SCH ×2 (11:07→21:13)
[2019-06-30] MEDS: LACTATED RINGERS 1,000 ML IV SCH (11:09)
[2019-06-30] MEDS: SODIUM CHLORIDE 0.9% 1,000 ML IV SCH ×2 (11:11→17:26)
[2019-06-30 11:15] LABS: VDRL Spinal Fluid Negative (Negative)
[2019-06-30] MEDS: ATORVASTATIN 80 MG TABLET PO SCH (21:14)
[2019-07-01] MEDS: PENICILLIN G POTASSIUM INJ 4,000,000 UNIT in SODIUM CHLORIDE 0.9% 100 ML IV SCH ×6 (02:30→22:02)
[2019-07-01] MEDS: INSULIN LISPRO 100 UNIT/ML SUBCUT SCH ×4 (08:09→22:20)
[2019-07-01] MEDS: FOLIC ACID 1 MG TABLET PO SCH (09:53)
[2019-07-01] MEDS: ASPIRIN EC 81 MG TABLET PO SCH (09:53)
[2019-07-01] MEDS: PANTOPRAZOLE 40 MG TABLET PO SCH ×2 (09:53→22:01)
[2019-07-01] MEDS: LOSARTAN 50 MG TABLET PO SCH ×2 (09:53→22:01)
[2019-07-01] MEDS: ALPRAZolam 0.25 MG TABLET PO SCH ×2 (09:54→22:01)
[2019-07-01] MEDS: levETIRAcetam 500 MG TABLET PO SCH ×2 (09:54→22:01)
[2019-07-01] MEDS: SODIUM HYPOCHLORITE 0.25% IRRIG 473 ML BOTTLE TOP SCH (09:54)
[2019-07-01] MEDS: DOCUSATE/SENNA 50-8.6 MG TABLET PO SCH ×2 (09:54→22:01)
[2019-07-01] MEDS: carvediloL 6.25 MG TABLET PO SCH ×2 (09:54→22:01)
[2019-07-01] MEDS: SODIUM CHLORIDE 0.9% 1,000 ML IV SCH ×3 (09:55→16:04)
[2019-07-01 12:51] LABS: M. Tuberculosis PCR Result Negative (Negative); M. Tuberculosis PCR Source CSF
[2019-07-01] MEDS: ATORVASTATIN 80 MG TABLET PO SCH (22:01)
[2019-07-02] MEDS: PENICILLIN G POTASSIUM INJ 4,000,000 UNIT in SODIUM CHLORIDE 0.9% 100 ML IV SCH ×6 (02:20→21:15)
[2019-07-02] MEDS: SODIUM CHLORIDE 0.9% 1,000 ML IV SCH ×3 (06:02→23:26)
[2019-07-02 06:14] LABS: Basophils # 0.1 10*3/uL (0.0-0.2); Basophils % 0.7 % (0.0-0.8); Eosinophils # 0.4 10*3/uL (0.0-0.87); Eosinophils % 3.9 % (0.00-10.9); Hematocrit 32.5 VOL% (42.0-52.0); Hemoglobin 10.1 GM/DL (14.0-18.0); Immature Granulocytes % 0.3 %; Immature Granulocytes Absolute 0.03 #; Lymphocytes # 2.3 10*3/uL (1.4-4.0); Mean Corpuscular HGB Conc 31.1 GM/DL (32-36); Mean Corpuscular Volume 86.2 FL (87-102); Mean Platelet Volume 9.4 FL (9.6-12.0); Monocytes % 8.9 % (1.7-12.7); Neutrophils % 62.2 % (38.7-73.9); Platelet Count 314 T/CUMM (130-400); Red Blood Count 3.77 MC/CUMM (3.8-5.5); White Blood Count 9.6 T/CUMM (4-12)
[2019-07-02 06:42] LABS: Calcium 8.5 MG/DL (8.5-10.1); Osmolality,Calculated 268.8 MOS/KG (273-304)
[2019-07-02] MEDS: carvediloL 6.25 MG TABLET PO SCH ×2 (09:57→21:21)
[2019-07-02] MEDS: ALPRAZolam 0.25 MG TABLET PO SCH ×2 (09:57→21:22)
[2019-07-02] MEDS: levETIRAcetam 500 MG TABLET PO SCH ×2 (09:57→21:13)
[2019-07-02] MEDS: FOLIC ACID 1 MG TABLET PO SCH (09:57)
[2019-07-02] MEDS: PANTOPRAZOLE 40 MG TABLET PO SCH ×2 (09:57→21:22)
[2019-07-02] MEDS: ASPIRIN EC 81 MG TABLET PO SCH (09:57)
[2019-07-02] MEDS: LOSARTAN 50 MG TABLET PO SCH ×2 (09:57→21:21)
[2019-07-02] MEDS: DOCUSATE/SENNA 50-8.6 MG TABLET PO SCH ×2 (09:57→21:22)
[2019-07-02] MEDS: INSULIN LISPRO 100 UNIT/ML SUBCUT SCH ×4 (09:58→21:22)
[2019-07-02] MEDS: SODIUM HYPOCHLORITE 0.25% IRRIG 473 ML BOTTLE TOP SCH (09:58)
[2019-07-02] MEDS ORDERED: BISACODYL 5 MG TABLET PO ONE (12:00)
[2019-07-02] MEDS ORDERED: POLYETHYLENE GLYCOL POWDER 255 GM BOTTLE PO ONE (15:00)
[2019-07-02] MEDS: ATORVASTATIN 80 MG TABLET PO SCH (21:22)
[2019-07-02] MEDS ORDERED: MAGNESIUM SULF RIDER 2 GM in PREMIX 1 EACH IV ONE (23:00)
[2019-07-03] MEDS: PENICILLIN G POTASSIUM INJ 4,000,000 UNIT in SODIUM CHLORIDE 0.9% 100 ML IV SCH ×6 (03:02→23:18)
[2019-07-03 05:18] LABS: Basophils # 0.1 10*3/uL (0.0-0.2); Basophils % 1.3 % (0.0-0.8); Eosinophils # 0.3 10*3/uL (0.0-0.87); Eosinophils % 4.2 % (0.00-10.9); Hematocrit 36.7 VOL% (42.0-52.0); Hemoglobin 11.3 GM/DL (14.0-18.0); Immature Granulocytes % 0.5 %; Immature Granulocytes Absolute 0.04 #; Lymphocytes # 2.2 10*3/uL (1.4-4.0); Mean Corpuscular HGB Conc 30.8 GM/DL (32-36); Mean Platelet Volume 9.6 FL (9.6-12.0); Monocytes % 6.4 % (1.7-12.7); Neutrophils % 59.6 % (38.7-73.9); Platelet Count 369 T/CUMM (130-400); Red Blood Count 4.22 MC/CUMM (3.8-5.5); Red Cell Distribution Width 16.1 % (9.3-17.3); White Blood Count 7.7 T/CUMM (4-12)
[2019-07-03 05:44] LABS: Calcium 8.8 MG/DL (8.5-10.1); Osmolality,Calculated 277.3 MOS/KG (273-304)
[2019-07-03] MEDS ORDERED: MAGNESIUM CITRATE 300 ML BOTTLE PO ONE (06:00)
[2019-07-03] MEDS: SODIUM CHLORIDE 0.9% 1,000 ML IV SCH ×3 (06:06→22:41)
[2019-07-03] MEDS: INSULIN LISPRO 100 UNIT/ML SUBCUT SCH ×4 (08:14→22:44)
[2019-07-03] MEDS ORDERED: LIDOCAINE 2% 5 ML VIAL ONE (09:00)
[2019-07-03] MEDS ORDERED: propofoL 200 MG/20 ML VIAL IV ONE (09:00)
[2019-07-03 09:04] LABS: RPR Confirm - Less than 1 yr REACTIVE (Nonreactive)
[2019-07-03] MEDS: ALPRAZolam 0.25 MG TABLET PO SCH ×2 (15:30→22:40)
[2019-07-03] MEDS: LOSARTAN 50 MG TABLET PO SCH ×2 (15:30→22:40)
[2019-07-03] MEDS: levETIRAcetam 500 MG TABLET PO SCH ×2 (15:30→22:40)
[2019-07-03] MEDS: FOLIC ACID 1 MG TABLET PO SCH (15:30)
[2019-07-03] MEDS: DOCUSATE/SENNA 50-8.6 MG TABLET PO SCH ×2 (15:30→22:40)
[2019-07-03] MEDS: SODIUM HYPOCHLORITE 0.25% IRRIG 473 ML BOTTLE TOP SCH (15:30)
[2019-07-03] MEDS: PANTOPRAZOLE 40 MG TABLET PO SCH ×2 (15:30→22:40)
[2019-07-03] MEDS: ASPIRIN EC 81 MG TABLET PO SCH (15:30)
[2019-07-03] MEDS: carvediloL 6.25 MG TABLET PO SCH ×2 (15:30→22:41)
[2019-07-03] MEDS: ATORVASTATIN 80 MG TABLET PO SCH (22:40)
[2019-07-04] MEDS: PENICILLIN G POTASSIUM INJ 4,000,000 UNIT in SODIUM CHLORIDE 0.9% 100 ML IV SCH ×6 (01:56→22:56)
[2019-07-04] MEDS: INSULIN LISPRO 100 UNIT/ML SUBCUT SCH ×4 (08:12→22:43)
[2019-07-04] MEDS: LOSARTAN 50 MG TABLET PO SCH ×2 (08:58→22:42)
[2019-07-04] MEDS: ASPIRIN EC 81 MG TABLET PO SCH (08:58)
[2019-07-04] MEDS: carvediloL 6.25 MG TABLET PO SCH ×2 (08:59→22:42)
[2019-07-04] MEDS: FOLIC ACID 1 MG TABLET PO SCH (08:59)
[2019-07-04] MEDS: ALPRAZolam 0.25 MG TABLET PO SCH ×2 (08:59→22:42)
[2019-07-04] MEDS: DOCUSATE/SENNA 50-8.6 MG TABLET PO SCH ×2 (08:59→22:42)
[2019-07-04] MEDS: PANTOPRAZOLE 40 MG TABLET PO SCH ×2 (08:59→22:42)
[2019-07-04] MEDS: SODIUM HYPOCHLORITE 0.25% IRRIG 473 ML BOTTLE TOP SCH (08:59)
[2019-07-04] MEDS: SODIUM CHLORIDE 0.9% 1,000 ML IV SCH ×2 (10:15→11:33)
[2019-07-04] MEDS ORDERED: NITROGLYCERIN SL 0.4 MG TABLET SL PRN (10:43)
[2019-07-04] MEDS: levETIRAcetam 500 MG TABLET PO SCH ×2 (11:48→22:42)
[2019-07-04] MEDS: ATORVASTATIN 80 MG TABLET PO SCH (22:41)
[2019-07-05] MEDS: PENICILLIN G POTASSIUM INJ 4,000,000 UNIT in SODIUM CHLORIDE 0.9% 100 ML IV SCH ×6 (02:50→22:37)
[2019-07-05] MEDS: SODIUM CHLORIDE 0.9% 1,000 ML IV SCH ×3 (02:51→17:41)
[2019-07-05 04:32] LABS: Basophils # 0.1 10*3/uL (0.0-0.2); Basophils % 0.8 % (0.0-0.8); Eosinophils # 0.3 10*3/uL (0.0-0.87); Eosinophils % 3.7 % (0.00-10.9); Hemoglobin 9.7 GM/DL (14.0-18.0); Immature Granulocytes % 0.3 %; Immature Granulocytes Absolute 0.02 #; Lymphocytes # 2.4 10*3/uL (1.4-4.0); Lymphocytes % 31.1 % (21.2-54.2); Mean Corpuscular HGB Conc 31.3 GM/DL (32-36); Mean Corpuscular Volume 85.2 FL (87-102); Mean Platelet Volume 9.9 FL (9.6-12.0); Monocytes % 6.8 % (1.7-12.7); Neutrophils % 57.3 % (38.7-73.9); Platelet Count 380 T/CUMM (130-400); Red Blood Count 3.64 MC/CUMM (3.8-5.5); Red Cell Distribution Width 15.7 % (9.3-17.3); White Blood Count 7.9 T/CUMM (4-12)
[2019-07-05 05:06] LABS: Calcium 8.5 MG/DL (8.5-10.1); Osmolality,Calculated 275.5 MOS/KG (273-304)
[2019-07-05] MEDS: carvediloL 6.25 MG TABLET PO SCH ×2 (10:18→22:34)
[2019-07-05] MEDS: ASPIRIN EC 81 MG TABLET PO SCH (10:18)
[2019-07-05] MEDS: PANTOPRAZOLE 40 MG TABLET PO SCH ×2 (10:18→22:34)
[2019-07-05] MEDS: DOCUSATE/SENNA 50-8.6 MG TABLET PO SCH ×2 (10:18→22:34)
[2019-07-05] MEDS: LOSARTAN 50 MG TABLET PO SCH ×2 (10:18→22:34)
[2019-07-05] MEDS: INSULIN LISPRO 100 UNIT/ML SUBCUT SCH ×4 (10:18→22:34)
[2019-07-05] MEDS: FOLIC ACID 1 MG TABLET PO SCH (10:18)
[2019-07-05] MEDS: ALPRAZolam 0.25 MG TABLET PO SCH ×2 (10:18→22:33)
[2019-07-05] MEDS: levETIRAcetam 500 MG TABLET PO SCH ×2 (10:28→22:34)
[2019-07-05] MEDS: SODIUM HYPOCHLORITE 0.25% IRRIG 473 ML BOTTLE TOP SCH (11:22)
[2019-07-05] MEDS: hydrALAZINE 25 MG TABLET PO SCH ×2 (13:10→22:34)
[2019-07-05] MEDS: ATORVASTATIN 80 MG TABLET PO SCH (22:34)
[2019-07-06] MEDS: PENICILLIN G POTASSIUM INJ 4,000,000 UNIT in SODIUM CHLORIDE 0.9% 100 ML IV SCH ×5 (03:27→22:31)
[2019-07-06] MEDS: SODIUM HYPOCHLORITE 0.25% IRRIG 473 ML BOTTLE TOP SCH (07:40)
[2019-07-06] MEDS: INSULIN LISPRO 100 UNIT/ML SUBCUT SCH ×4 (08:11→22:18)
[2019-07-06] MEDS: SODIUM CHLORIDE 0.9% 1,000 ML IV SCH ×2 (09:18→09:58)
[2019-07-06] MEDS: LOSARTAN 50 MG TABLET PO SCH ×2 (09:18→22:18)
[2019-07-06] MEDS: ALPRAZolam 0.25 MG TABLET PO SCH ×2 (09:18→22:17)
[2019-07-06] MEDS: carvediloL 6.25 MG TABLET PO SCH ×2 (09:19→22:17)
[2019-07-06] MEDS: FOLIC ACID 1 MG TABLET PO SCH (09:19)
[2019-07-06] MEDS: PANTOPRAZOLE 40 MG TABLET PO SCH ×2 (09:19→22:18)
[2019-07-06] MEDS: DOCUSATE/SENNA 50-8.6 MG TABLET PO SCH ×2 (09:19→22:17)
[2019-07-06] MEDS: hydrALAZINE 25 MG TABLET PO SCH ×2 (09:19→22:17)
[2019-07-06] MEDS: ASPIRIN EC 81 MG TABLET PO SCH (09:19)
[2019-07-06] MEDS: levETIRAcetam 500 MG TABLET PO SCH ×2 (09:25→22:17)
[2019-07-06] MEDS: ATORVASTATIN 80 MG TABLET PO SCH (22:17)
[2019-07-07] MEDS: PENICILLIN G POTASSIUM INJ 4,000,000 UNIT in SODIUM CHLORIDE 0.9% 100 ML IV SCH ×6 (03:46→22:05)
[2019-07-07] MEDS: SODIUM CHLORIDE 0.9% 1,000 ML IV SCH ×3 (07:33→12:57)
[2019-07-07] MEDS: ASPIRIN EC 81 MG TABLET PO SCH (08:49)
[2019-07-07] MEDS: DOCUSATE/SENNA 50-8.6 MG TABLET PO SCH ×2 (08:49→21:01)
[2019-07-07] MEDS: FOLIC ACID 1 MG TABLET PO SCH (08:49)
[2019-07-07] MEDS: levETIRAcetam 500 MG TABLET PO SCH ×2 (08:49→21:00)
[2019-07-07] MEDS: INSULIN LISPRO 100 UNIT/ML SUBCUT SCH ×4 (08:49→20:59)
[2019-07-07] MEDS: PANTOPRAZOLE 40 MG TABLET PO SCH ×2 (08:50→21:00)
[2019-07-07] MEDS: SODIUM HYPOCHLORITE 0.25% IRRIG 473 ML BOTTLE TOP SCH (08:50)
[2019-07-07] MEDS: hydrALAZINE 25 MG TABLET PO SCH ×2 (08:50→20:58)
[2019-07-07] MEDS: carvediloL 6.25 MG TABLET PO SCH ×2 (08:50→20:58)
[2019-07-07] MEDS: LOSARTAN 50 MG TABLET PO SCH ×2 (08:50→20:59)
[2019-07-07] MEDS: ALPRAZolam 0.25 MG TABLET PO SCH ×2 (10:06→21:01)
[2019-07-07] MEDS: COLLAGENASE OINT 30 GM TUBE TOP SCH (15:55)
[2019-07-07] MEDS: ATORVASTATIN 80 MG TABLET PO SCH (21:00)
[2019-07-07] MEDS: ACETAMINOPHEN 325 MG TABLET PO PRN (23:38)
[2019-07-08] MEDS: PENICILLIN G POTASSIUM INJ 4,000,000 UNIT in SODIUM CHLORIDE 0.9% 100 ML IV SCH ×6 (02:00→21:54)
[2019-07-08] MEDS: INSULIN LISPRO 100 UNIT/ML SUBCUT SCH ×4 (08:41→20:17)
[2019-07-08] MEDS: SODIUM HYPOCHLORITE 0.25% IRRIG 473 ML BOTTLE TOP SCH (09:01)
[2019-07-08] MEDS: ASPIRIN EC 81 MG TABLET PO SCH (09:02)
[2019-07-08] MEDS: COLLAGENASE OINT 30 GM TUBE TOP SCH (09:02)
[2019-07-08] MEDS: carvediloL 6.25 MG TABLET PO SCH ×2 (09:02→21:12)
[2019-07-08] MEDS: levETIRAcetam 500 MG TABLET PO SCH ×2 (09:02→21:13)
[2019-07-08] MEDS: PANTOPRAZOLE 40 MG TABLET PO SCH ×2 (09:02→21:13)
[2019-07-08] MEDS: hydrALAZINE 25 MG TABLET PO SCH ×2 (09:02→21:12)
[2019-07-08] MEDS: DOCUSATE/SENNA 50-8.6 MG TABLET PO SCH ×2 (09:02→21:12)
[2019-07-08] MEDS: FOLIC ACID 1 MG TABLET PO SCH (09:02)
[2019-07-08] MEDS: LOSARTAN 50 MG TABLET PO SCH ×2 (09:02→21:12)
[2019-07-08] MEDS: ALPRAZolam 0.25 MG TABLET PO SCH ×2 (09:02→21:12)
[2019-07-08] MEDS: ATORVASTATIN 80 MG TABLET PO SCH (21:13)
[2019-07-09] MEDS: PENICILLIN G POTASSIUM INJ 4,000,000 UNIT in SODIUM CHLORIDE 0.9% 100 ML IV SCH ×6 (02:04→22:30)
[2019-07-09] MEDS: INSULIN LISPRO 100 UNIT/ML SUBCUT SCH ×4 (07:58→22:16)
[2019-07-09] MEDS: PANTOPRAZOLE 40 MG TABLET PO SCH ×2 (08:31→23:00)
[2019-07-09] MEDS: hydrALAZINE 25 MG TABLET PO SCH ×2 (08:31→22:15)
[2019-07-09] MEDS: ALPRAZolam 0.25 MG TABLET PO SCH ×2 (08:31→22:15)
[2019-07-09] MEDS: ASPIRIN EC 81 MG TABLET PO SCH (08:31)
[2019-07-09] MEDS: COLLAGENASE OINT 30 GM TUBE TOP SCH (08:32)
[2019-07-09] MEDS: carvediloL 6.25 MG TABLET PO SCH ×2 (08:32→22:15)
[2019-07-09] MEDS: levETIRAcetam 500 MG TABLET PO SCH ×2 (08:33→22:15)
[2019-07-09] MEDS: LOSARTAN 50 MG TABLET PO SCH (08:33)
[2019-07-09] MEDS: SODIUM HYPOCHLORITE 0.25% IRRIG 473 ML BOTTLE TOP SCH (08:33)
[2019-07-09] MEDS: FOLIC ACID 1 MG TABLET PO SCH (08:33)
[2019-07-09] MEDS: DOCUSATE/SENNA 50-8.6 MG TABLET PO SCH ×2 (08:34→22:15)
[2019-07-09] MEDS: ATORVASTATIN 80 MG TABLET PO SCH (22:15)
[2019-07-09] MEDS: LOSARTAN 25 MG TABLET PO SCH (22:15)
[2019-07-10] MEDS: PENICILLIN G POTASSIUM INJ 4,000,000 UNIT in SODIUM CHLORIDE 0.9% 100 ML IV SCH ×6 (02:11→22:06)
[2019-07-10] MEDS: INSULIN LISPRO 100 UNIT/ML SUBCUT SCH ×4 (08:24→21:47)
[2019-07-10 09:44] LABS: Basophils # 0.1 10*3/uL (0.0-0.2); Basophils % 0.8 % (0.0-0.8); Eosinophils # 0.3 10*3/uL (0.0-0.87); Eosinophils % 2.3 % (0.00-10.9); Hematocrit 33.1 VOL% (42.0-52.0); Hemoglobin 10.1 GM/DL (14.0-18.0); Immature Granulocytes % 0.5 %; Immature Granulocytes Absolute 0.05 #; Lymphocytes # 1.9 10*3/uL (1.4-4.0); Mean Corpuscular HGB Conc 30.5 GM/DL (32-36); Mean Corpuscular Volume 85.8 FL (87-102); Mean Platelet Volume 9.2 FL (9.6-12.0); Monocytes % 6.4 % (1.7-12.7); Platelet Count 412 T/CUMM (130-400); Red Blood Count 3.86 MC/CUMM (3.8-5.5); Red Cell Distribution Width 16.2 % (9.3-17.3); White Blood Count 10.8 T/CUMM (4-12)
[2019-07-10 10:05] LABS: Albumin 2.2 G/DL (3.4-5.0); Bilirubin,Total 0.7 MG/DL (0.2-1.0); Calcium 8.9 MG/DL (8.5-10.1); Osmolality,Calculated 270.8 MOS/KG (273-304); Total Protein 7.8 G/DL (6.4-8.3)
[2019-07-10] MEDS: carvediloL 6.25 MG TABLET PO SCH ×2 (10:08→21:46)
[2019-07-10] MEDS: LOSARTAN 25 MG TABLET PO SCH ×2 (10:08→21:45)
[2019-07-10] MEDS: ASPIRIN EC 81 MG TABLET PO SCH (10:08)
[2019-07-10] MEDS: hydrALAZINE 25 MG TABLET PO SCH ×2 (10:08→22:05)
[2019-07-10] MEDS: FOLIC ACID 1 MG TABLET PO SCH (10:09)
[2019-07-10] MEDS: levETIRAcetam 500 MG TABLET PO SCH ×2 (10:09→21:46)
[2019-07-10] MEDS: DOCUSATE/SENNA 50-8.6 MG TABLET PO SCH ×2 (10:10→21:46)
[2019-07-10] MEDS: ALPRAZolam 0.25 MG TABLET PO SCH ×2 (10:10→21:45)
[2019-07-10] MEDS: PANTOPRAZOLE 40 MG TABLET PO SCH ×2 (10:10→21:46)
[2019-07-10] MEDS: COLLAGENASE OINT 30 GM TUBE TOP SCH (10:40)
[2019-07-10] MEDS: SODIUM HYPOCHLORITE 0.25% IRRIG 473 ML BOTTLE TOP SCH (10:40)
[2019-07-10] MEDS: ATORVASTATIN 80 MG TABLET PO SCH (21:46)
[2019-07-10] MEDS: ACETAMINOPHEN 325 MG TABLET PO PRN (21:46)
[2019-07-11] MEDS: PENICILLIN G POTASSIUM INJ 4,000,000 UNIT in SODIUM CHLORIDE 0.9% 100 ML IV SCH ×6 (01:57→21:18)
[2019-07-11] MEDS: INSULIN LISPRO 100 UNIT/ML SUBCUT SCH ×4 (08:29→21:45)
[2019-07-11] MEDS: ALPRAZolam 0.25 MG TABLET PO SCH ×2 (09:34→21:28)
[2019-07-11] MEDS: DOCUSATE/SENNA 50-8.6 MG TABLET PO SCH ×2 (09:34→21:28)
[2019-07-11] MEDS: ACETAMINOPHEN 325 MG TABLET PO PRN ×2 (09:35→21:28)
[2019-07-11] MEDS: LOSARTAN 25 MG TABLET PO SCH ×2 (09:35→21:28)
[2019-07-11] MEDS: FOLIC ACID 1 MG TABLET PO SCH (09:36)
[2019-07-11] MEDS: hydrALAZINE 25 MG TABLET PO SCH ×2 (09:36→21:29)
[2019-07-11] MEDS: PANTOPRAZOLE 40 MG TABLET PO SCH ×2 (09:36→21:28)
[2019-07-11] MEDS: ASPIRIN EC 81 MG TABLET PO SCH (09:36)
[2019-07-11] MEDS: carvediloL 6.25 MG TABLET PO SCH ×2 (09:36→21:29)
[2019-07-11] MEDS: SODIUM HYPOCHLORITE 0.25% IRRIG 473 ML BOTTLE TOP SCH (09:37)
[2019-07-11] MEDS: COLLAGENASE OINT 30 GM TUBE TOP SCH (09:37)
[2019-07-11] MEDS: levETIRAcetam 500 MG TABLET PO SCH ×2 (09:53→21:28)
[2019-07-11] MEDS: ATORVASTATIN 80 MG TABLET PO SCH (21:28)
[2019-07-12] MEDS: PENICILLIN G POTASSIUM INJ 4,000,000 UNIT in SODIUM CHLORIDE 0.9% 100 ML IV SCH ×6 (01:06→22:12)
[2019-07-12] MEDS: levETIRAcetam 500 MG TABLET PO SCH ×2 (10:00→21:13)
[2019-07-12] MEDS: ASPIRIN EC 81 MG TABLET PO SCH (10:00)
[2019-07-12] MEDS: INSULIN LISPRO 100 UNIT/ML SUBCUT SCH ×4 (10:00→21:13)
[2019-07-12] MEDS: PANTOPRAZOLE 40 MG TABLET PO SCH ×2 (10:00→21:13)
[2019-07-12] MEDS: carvediloL 6.25 MG TABLET PO SCH ×2 (10:00→21:13)
[2019-07-12] MEDS: hydrALAZINE 25 MG TABLET PO SCH ×2 (10:00→21:13)
[2019-07-12] MEDS: FOLIC ACID 1 MG TABLET PO SCH (10:00)
[2019-07-12] MEDS: LOSARTAN 25 MG TABLET PO SCH ×2 (10:00→21:14)
[2019-07-12] MEDS: ALPRAZolam 0.25 MG TABLET PO SCH ×2 (10:01→21:13)
[2019-07-12] MEDS: DOCUSATE/SENNA 50-8.6 MG TABLET PO SCH ×2 (10:01→21:13)
[2019-07-12] MEDS: SODIUM HYPOCHLORITE 0.25% IRRIG 473 ML BOTTLE TOP SCH (18:08)
[2019-07-12] MEDS: COLLAGENASE OINT 30 GM TUBE TOP SCH (18:08)
[2019-07-12] MEDS: ATORVASTATIN 80 MG TABLET PO SCH (21:13)
[2019-07-13] MEDS: ASPIRIN EC 81 MG TABLET PO SCH (08:39)
[2019-07-13] MEDS: ALPRAZolam 0.25 MG TABLET PO SCH ×2 (08:39→21:04)
[2019-07-13] MEDS: levETIRAcetam 500 MG TABLET PO SCH ×2 (08:39→21:05)
[2019-07-13] MEDS: hydrALAZINE 25 MG TABLET PO SCH ×2 (08:39→21:04)
[2019-07-13] MEDS: PANTOPRAZOLE 40 MG TABLET PO SCH ×2 (08:39→21:03)
[2019-07-13] MEDS: carvediloL 6.25 MG TABLET PO SCH ×2 (08:39→21:03)
[2019-07-13] MEDS: DOCUSATE/SENNA 50-8.6 MG TABLET PO SCH ×2 (08:39→21:04)
[2019-07-13] MEDS: LOSARTAN 25 MG TABLET PO SCH ×2 (08:39→21:03)
[2019-07-13] MEDS: FOLIC ACID 1 MG TABLET PO SCH (08:39)
[2019-07-13] MEDS: INSULIN LISPRO 100 UNIT/ML SUBCUT SCH ×4 (08:46→21:04)
[2019-07-13] MEDS: SODIUM HYPOCHLORITE 0.25% IRRIG 473 ML BOTTLE TOP SCH (18:04)
[2019-07-13] MEDS: COLLAGENASE OINT 30 GM TUBE TOP SCH (18:04)
[2019-07-13] MEDS: ATORVASTATIN 80 MG TABLET PO SCH (21:03)
[2019-07-14 06:25] LABS: Basophils # 0.1 10*3/uL (0.0-0.2); Basophils % 0.8 % (0.0-0.8); Eosinophils # 0.2 10*3/uL (0.0-0.87); Eosinophils % 1.8 % (0.00-10.9); Hematocrit 33.1 VOL% (42.0-52.0); Hemoglobin 10.3 GM/DL (14.0-18.0); Immature Granulocytes % 0.5 %; Immature Granulocytes Absolute 0.06 #; Lymphocytes # 2.4 10*3/uL (1.4-4.0); Lymphocytes % 20.1 % (21.2-54.2); Mean Corpuscular HGB Conc 31.1 GM/DL (32-36); Mean Corpuscular Volume 83.6 FL (87-102); Monocytes % 8.6 % (1.7-12.7); Neutrophils % 68.2 % (38.7-73.9); Platelet Count 236 T/CUMM (130-400); Red Blood Count 3.96 MC/CUMM (3.8-5.5); Red Cell Distribution Width 15.8 % (9.3-17.3); White Blood Count 11.9 T/CUMM (4-12)
[2019-07-14 06:46] LABS: Anisocytosis 1+; Eosinophils 1 % (0-10); Lymphocytes 20 % (20-55); Macrocytosis 1+; Platelet Estimate Normal; Segmented Neutrophils 72 % (50-85); Total Cells Counted 100
[2019-07-14 06:55] LABS: Calcium 8.9 MG/DL (8.5-10.1); Osmolality,Calculated 272.8 MOS/KG (273-304)
[2019-07-14] MEDS: INSULIN LISPRO 100 UNIT/ML SUBCUT SCH ×4 (09:43→22:17)
[2019-07-14] MEDS: ASPIRIN EC 81 MG TABLET PO SCH (09:44)
[2019-07-14] MEDS: ALPRAZolam 0.25 MG TABLET PO SCH ×2 (09:44→22:07)
[2019-07-14] MEDS: levETIRAcetam 500 MG TABLET PO SCH ×2 (09:44→22:08)
[2019-07-14] MEDS: PANTOPRAZOLE 40 MG TABLET PO SCH ×2 (09:44→22:07)
[2019-07-14] MEDS: carvediloL 6.25 MG TABLET PO SCH ×2 (09:44→22:07)
[2019-07-14] MEDS: hydrALAZINE 25 MG TABLET PO SCH ×2 (09:50→22:07)
[2019-07-14] MEDS: LOSARTAN 25 MG TABLET PO SCH ×2 (09:53→22:07)
[2019-07-14] MEDS: FOLIC ACID 1 MG TABLET PO SCH (09:54)
[2019-07-14] MEDS: SODIUM HYPOCHLORITE 0.25% IRRIG 473 ML BOTTLE TOP SCH (09:54)
[2019-07-14] MEDS: COLLAGENASE OINT 30 GM TUBE TOP SCH (09:55)
[2019-07-14] MEDS: DOCUSATE/SENNA 50-8.6 MG TABLET PO SCH ×2 (09:59→22:07)
[2019-07-14] MEDS: POTASSIUM CHLORIDE 20 MEQ TABLET PO SCH ×3 (13:24→22:08)
[2019-07-14] MEDS: ATORVASTATIN 80 MG TABLET PO SCH (22:07)
[2019-07-14] MEDS: ACETAMINOPHEN 325 MG TABLET PO PRN (22:08)
[2019-07-15 03:56] LABS: Calcium 9.2 MG/DL (8.5-10.1); Osmolality,Calculated 278.7 MOS/KG (273-304)
[2019-07-15] MEDS: INSULIN LISPRO 100 UNIT/ML SUBCUT SCH ×4 (07:50→21:21)
[2019-07-15] MEDS: LOSARTAN 25 MG TABLET PO SCH ×2 (08:55→21:20)
[2019-07-15] MEDS: ASPIRIN EC 81 MG TABLET PO SCH (08:55)
[2019-07-15] MEDS: carvediloL 6.25 MG TABLET PO SCH ×2 (08:55→21:20)
[2019-07-15] MEDS: hydrALAZINE 25 MG TABLET PO SCH ×2 (08:55→21:19)
[2019-07-15] MEDS: DOCUSATE/SENNA 50-8.6 MG TABLET PO SCH ×2 (08:55→21:21)
[2019-07-15] MEDS: PANTOPRAZOLE 40 MG TABLET PO SCH ×2 (08:55→21:21)
[2019-07-15] MEDS: FOLIC ACID 1 MG TABLET PO SCH (08:55)
[2019-07-15] MEDS: levETIRAcetam 500 MG TABLET PO SCH ×2 (08:55→21:21)
[2019-07-15] MEDS: SODIUM HYPOCHLORITE 0.25% IRRIG 473 ML BOTTLE TOP SCH (09:09)
[2019-07-15] MEDS: COLLAGENASE OINT 30 GM TUBE TOP SCH (09:09)
[2019-07-15] MEDS: ATORVASTATIN 80 MG TABLET PO SCH (21:20)
[2019-07-15] MEDS: ACETAMINOPHEN 325 MG TABLET PO PRN (21:20)
[2019-07-16] MEDS: ACETAMINOPHEN 325 MG TABLET PO PRN ×2 (06:54→13:01)
[2019-07-16] MEDS: FOLIC ACID 1 MG TABLET PO SCH (09:19)
[2019-07-16] MEDS: hydrALAZINE 25 MG TABLET PO SCH ×2 (09:19→21:59)
[2019-07-16] MEDS: carvediloL 6.25 MG TABLET PO SCH ×2 (09:19→21:59)
[2019-07-16] MEDS: levETIRAcetam 500 MG TABLET PO SCH ×2 (09:19→21:59)
[2019-07-16] MEDS: DOCUSATE/SENNA 50-8.6 MG TABLET PO SCH ×2 (09:19→21:59)
[2019-07-16] MEDS: PANTOPRAZOLE 40 MG TABLET PO SCH ×2 (09:19→21:59)
[2019-07-16] MEDS: INSULIN LISPRO 100 UNIT/ML SUBCUT SCH ×4 (09:20→21:59)
[2019-07-16] MEDS: LOSARTAN 25 MG TABLET PO SCH ×2 (09:20→21:59)
[2019-07-16] MEDS: SODIUM HYPOCHLORITE 0.25% IRRIG 473 ML BOTTLE TOP SCH (09:20)
[2019-07-16] MEDS: ASPIRIN EC 81 MG TABLET PO SCH (09:20)
[2019-07-16] MEDS: COLLAGENASE OINT 30 GM TUBE TOP SCH (09:21)
[2019-07-16] MEDS: LACTULOSE 20 GM/30 ML UDCUP PO PRN (13:02)
[2019-07-16] MEDS: ATORVASTATIN 80 MG TABLET PO SCH (21:59)
[2019-07-17] MEDS: ACETAMINOPHEN 325 MG TABLET PO PRN ×2 (02:25→21:45)
[2019-07-17] MEDS: INSULIN LISPRO 100 UNIT/ML SUBCUT SCH ×4 (08:35→21:46)
[2019-07-17] MEDS: hydrALAZINE 25 MG TABLET PO SCH ×2 (09:17→21:47)
[2019-07-17] MEDS: levETIRAcetam 500 MG TABLET PO SCH ×2 (09:18→21:44)
[2019-07-17] MEDS: ASPIRIN EC 81 MG TABLET PO SCH (09:18)
[2019-07-17] MEDS: DOCUSATE/SENNA 50-8.6 MG TABLET PO SCH ×2 (09:18→21:44)
[2019-07-17] MEDS: carvediloL 6.25 MG TABLET PO SCH ×2 (09:18→21:45)
[2019-07-17] MEDS: LOSARTAN 25 MG TABLET PO SCH ×2 (09:18→21:45)
[2019-07-17] MEDS: SODIUM HYPOCHLORITE 0.25% IRRIG 473 ML BOTTLE TOP SCH (09:19)
[2019-07-17] MEDS: COLLAGENASE OINT 30 GM TUBE TOP SCH (09:19)
[2019-07-17] MEDS: PANTOPRAZOLE 40 MG TABLET PO SCH ×2 (09:19→21:45)
[2019-07-17] MEDS: FOLIC ACID 1 MG TABLET PO SCH (09:19)
[2019-07-17] MEDS: ATORVASTATIN 80 MG TABLET PO SCH (21:44)
[2019-07-17] MEDS: ZALEPLON 5 MG CAPSULE PO PRN (23:55)
[2019-07-18] MEDS: INSULIN LISPRO 100 UNIT/ML SUBCUT SCH ×4 (08:41→21:24)
[2019-07-18] MEDS: ASPIRIN EC 81 MG TABLET PO SCH (10:06)
[2019-07-18] MEDS: carvediloL 6.25 MG TABLET PO SCH ×2 (10:06→21:24)
[2019-07-18] MEDS: LACTULOSE 20 GM/30 ML UDCUP PO PRN (10:06)
[2019-07-18] MEDS: FOLIC ACID 1 MG TABLET PO SCH (10:06)
[2019-07-18] MEDS: DOCUSATE/SENNA 50-8.6 MG TABLET PO SCH ×2 (10:06→21:24)
[2019-07-18] MEDS: hydrALAZINE 25 MG TABLET PO SCH ×2 (10:06→21:24)
[2019-07-18] MEDS: LOSARTAN 25 MG TABLET PO SCH ×2 (10:06→21:24)
[2019-07-18] MEDS: PANTOPRAZOLE 40 MG TABLET PO SCH ×2 (10:06→21:24)
[2019-07-18] MEDS: SODIUM HYPOCHLORITE 0.25% IRRIG 473 ML BOTTLE TOP SCH (10:07)
[2019-07-18] MEDS: levETIRAcetam 500 MG TABLET PO SCH ×2 (10:07→21:24)
[2019-07-18] MEDS: COLLAGENASE OINT 30 GM TUBE TOP SCH (10:08)
[2019-07-18 16:05] LABS: Basophils # 0.1 10*3/uL (0.0-0.2); Basophils % 0.6 % (0.0-0.8); Eosinophils # 0.3 10*3/uL (0.0-0.87); Hematocrit 30.8 VOL% (42.0-52.0); Hemoglobin 9.5 GM/DL (14.0-18.0); Immature Granulocytes % 0.4 %; Immature Granulocytes Absolute 0.05 #; Lymphocytes # 2.1 10*3/uL (1.4-4.0); Lymphocytes % 16.2 % (21.2-54.2); Mean Corpuscular HGB Conc 30.8 GM/DL (32-36); Mean Corpuscular Volume 84.4 FL (87-102); Mean Platelet Volume 10.7 FL (9.6-12.0); Monocytes % 7.5 % (1.7-12.7); Neutrophils % 73.3 % (38.7-73.9); Platelet Count 395 T/CUMM (130-400); Red Blood Count 3.65 MC/CUMM (3.8-5.5); Red Cell Distribution Width 15.9 % (9.3-17.3)
[2019-07-18] MEDS: ACETAMINOPHEN 325 MG TABLET PO PRN (16:16)
[2019-07-18 16:24] LABS: Calcium 8.9 MG/DL (8.5-10.1); Osmolality,Calculated 270.1 MOS/KG (273-304)
[2019-07-18] MEDS: ATORVASTATIN 80 MG TABLET PO SCH (21:24)
[2019-07-18] MEDS: ZALEPLON 5 MG CAPSULE PO PRN (21:24)
[2019-07-19] MEDS: ACETAMINOPHEN 325 MG TABLET PO PRN ×2 (00:34→08:37)
[2019-07-19 05:12] LABS: Apearance,Urine CLEAR (Clear); Bacteria,Urine Occasional /HPF (Few); Bilirubin,Urine Negative (Negative); Blood, Urine Negative (Negative); Glucose,Urine (UA) Negative (Negative); Ketones,Urine Negative (Negative); Mucus,Urine Occasional /LPF (Occasional); Nitrite,Urine Negative (Negative); Protein,Urine Negative; RBC,Urine 1 /HPF (0-4); Squamous Epithelial Cell,Urine Occasional /HPF (0-10); Urine Color Yellow (Yellow); Urine Specific Gravity 1.008 (1.001-1.035); Urine Urobilinogen < 2.0 EU/DL (0.2-1.0); WBC,Urine <1 /HPF (0-6)
[2019-07-19 05:50] LABS: Basophils # 0.1 10*3/uL (0.0-0.2); Basophils % 0.8 % (0.0-0.8); Eosinophils # 0.4 10*3/uL (0.0-0.87); Eosinophils % 3.1 % (0.00-10.9); Hematocrit 30.6 VOL% (42.0-52.0); Hemoglobin 9.4 GM/DL (14.0-18.0); Immature Granulocytes % 0.3 %; Immature Granulocytes Absolute 0.04 #; Lymphocytes # 3.1 10*3/uL (1.4-4.0); Lymphocytes % 26.3 % (21.2-54.2); Mean Corpuscular HGB Conc 30.7 GM/DL (32-36); Mean Corpuscular Volume 83.6 FL (87-102); Mean Platelet Volume 10.7 FL (9.6-12.0); Monocytes % 8.5 % (1.7-12.7); Platelet Count 421 T/CUMM (130-400); Red Blood Count 3.66 MC/CUMM (3.8-5.5); Red Cell Distribution Width 15.6 % (9.3-17.3); White Blood Count 11.8 T/CUMM (4-12)
[2019-07-19 06:29] LABS: Calcium 8.8 MG/DL (8.5-10.1)
[2019-07-19] MEDS: INSULIN LISPRO 100 UNIT/ML SUBCUT SCH ×4 (08:36→20:40)
[2019-07-19] MEDS: hydrALAZINE 25 MG TABLET PO SCH ×2 (08:37→22:24)
[2019-07-19] MEDS: levETIRAcetam 500 MG TABLET PO SCH ×2 (08:37→22:23)
[2019-07-19] MEDS: LOSARTAN 25 MG TABLET PO SCH ×2 (08:37→22:23)
[2019-07-19] MEDS: DOCUSATE/SENNA 50-8.6 MG TABLET PO SCH ×2 (08:38→22:24)
[2019-07-19] MEDS: ASPIRIN EC 81 MG TABLET PO SCH (08:38)
[2019-07-19] MEDS: FOLIC ACID 1 MG TABLET PO SCH (08:38)
[2019-07-19] MEDS: carvediloL 6.25 MG TABLET PO SCH ×2 (08:38→22:23)
[2019-07-19] MEDS: PANTOPRAZOLE 40 MG TABLET PO SCH ×2 (08:38→22:23)
[2019-07-19] MEDS: SODIUM HYPOCHLORITE 0.25% IRRIG 473 ML BOTTLE TOP SCH (08:39)
[2019-07-19] MEDS: COLLAGENASE OINT 30 GM TUBE TOP SCH (08:39)
[2019-07-19] MEDS ORDERED: POTASSIUM CHLORIDE 20 MEQ TABLET PO ONE (10:00)
[2019-07-19] MEDS: VANCOMYCIN INJ 1,000 MG in SODIUM CHLORIDE 0.9% 250 ML IV SCH (13:08)
[2019-07-19] MEDS: TAMSULOSIN 0.4 MG CAPSULE PO SCH (13:08)
[2019-07-19] MEDS: PIPERACILLIN/TAZOBACTAM 3,375 MG in SODIUM CHLORIDE 0.9% 100 ML IV SCH ×2 (14:23→22:25)
[2019-07-19] MEDS: ATORVASTATIN 80 MG TABLET PO SCH (22:24)
[2019-07-19] MEDS: ZALEPLON 5 MG CAPSULE PO PRN (22:24)
[2019-07-20] MEDS: VANCOMYCIN INJ 1,000 MG in SODIUM CHLORIDE 0.9% 250 ML IV SCH ×2 (02:27→12:03)
[2019-07-20] MEDS: PIPERACILLIN/TAZOBACTAM 3,375 MG in SODIUM CHLORIDE 0.9% 100 ML IV SCH ×3 (04:53→22:27)
[2019-07-20 05:02] LABS: Basophils # 0.1 10*3/uL (0.0-0.2); Basophils % 0.7 % (0.0-0.8); Eosinophils # 0.4 10*3/uL (0.0-0.87); Eosinophils % 3.2 % (0.00-10.9); Hematocrit 27.5 VOL% (42.0-52.0); Hemoglobin 8.5 GM/DL (14.0-18.0); Immature Granulocytes % 0.5 %; Immature Granulocytes Absolute 0.05 #; Lymphocytes # 2.5 10*3/uL (1.4-4.0); Lymphocytes % 23.1 % (21.2-54.2); Mean Corpuscular HGB Conc 30.9 GM/DL (32-36); Mean Corpuscular Volume 83.3 FL (87-102); Mean Platelet Volume 10.1 FL (9.6-12.0); Monocytes % 8.8 % (1.7-12.7); Neutrophils % 63.7 % (38.7-73.9); Platelet Count 390 T/CUMM (130-400); Red Cell Distribution Width 15.7 % (9.3-17.3); White Blood Count 10.9 T/CUMM (4-12)
[2019-07-20 05:41] LABS: Calcium 8.6 MG/DL (8.5-10.1)
[2019-07-20] MEDS: INSULIN LISPRO 100 UNIT/ML SUBCUT SCH ×4 (07:39→21:20)
[2019-07-20] MEDS: ASPIRIN EC 81 MG TABLET PO SCH (08:28)
[2019-07-20] MEDS: FOLIC ACID 1 MG TABLET PO SCH (08:28)
[2019-07-20] MEDS: LOSARTAN 25 MG TABLET PO SCH ×2 (08:28→22:33)
[2019-07-20] MEDS: PANTOPRAZOLE 40 MG TABLET PO SCH ×2 (08:28→22:33)
[2019-07-20] MEDS: hydrALAZINE 25 MG TABLET PO SCH ×2 (08:28→22:33)
[2019-07-20] MEDS: SODIUM HYPOCHLORITE 0.25% IRRIG 473 ML BOTTLE TOP SCH (08:28)
[2019-07-20] MEDS: carvediloL 6.25 MG TABLET PO SCH ×2 (08:28→22:33)
[2019-07-20] MEDS: TAMSULOSIN 0.4 MG CAPSULE PO SCH (08:28)
[2019-07-20] MEDS: levETIRAcetam 500 MG TABLET PO SCH ×2 (08:28→22:33)
[2019-07-20] MEDS: COLLAGENASE OINT 30 GM TUBE TOP SCH (08:29)
[2019-07-20] MEDS: DOCUSATE/SENNA 50-8.6 MG TABLET PO SCH ×2 (08:29→22:33)
[2019-07-20] MEDS ORDERED: POTASSIUM CHLORIDE 20 MEQ/15 ML UDCUP PO ONE (10:00)
[2019-07-20] MEDS: ACETAMINOPHEN 325 MG TABLET PO PRN (18:32)
[2019-07-20] MEDS: ZALEPLON 5 MG CAPSULE PO PRN (22:32)
[2019-07-20] MEDS: ATORVASTATIN 80 MG TABLET PO SCH (22:33)
[2019-07-21] MEDS: VANCOMYCIN INJ 1,000 MG in SODIUM CHLORIDE 0.9% 250 ML IV SCH ×2 (02:42→13:36)
[2019-07-21 05:44] LABS: Basophils # 0.1 10*3/uL (0.0-0.2); Basophils % 0.6 % (0.0-0.8); Eosinophils # 0.4 10*3/uL (0.0-0.87); Eosinophils % 3.4 % (0.00-10.9); Hematocrit 29.5 VOL% (42.0-52.0); Immature Granulocytes % 0.7 %; Immature Granulocytes Absolute 0.08 #; Lymphocytes # 2.2 10*3/uL (1.4-4.0); Lymphocytes % 18.3 % (21.2-54.2); Mean Corpuscular HGB Conc 30.5 GM/DL (32-36); Mean Corpuscular Volume 83.1 FL (87-102); Mean Platelet Volume 10.7 FL (9.6-12.0); Monocytes % 7.5 % (1.7-12.7); Neutrophils % 69.5 % (38.7-73.9); Platelet Count 363 T/CUMM (130-400); Red Blood Count 3.55 MC/CUMM (3.8-5.5); Red Cell Distribution Width 15.7 % (9.3-17.3); White Blood Count 12.2 T/CUMM (4-12)
[2019-07-21] MEDS: PIPERACILLIN/TAZOBACTAM 3,375 MG in SODIUM CHLORIDE 0.9% 100 ML IV SCH ×3 (06:13→20:40)
[2019-07-21 06:17] LABS: Calcium 8.6 MG/DL (8.5-10.1); Osmolality,Calculated 269.8 MOS/KG (273-304)
[2019-07-21] MEDS: INSULIN LISPRO 100 UNIT/ML SUBCUT SCH ×4 (08:22→20:40)
[2019-07-21] MEDS ORDERED: LIDOCAINE 1%/EPI INJ 20 ML VIAL ONE (09:49)
[2019-07-21] MEDS ORDERED: BUPIVACAINE MPF 0.25% 30 ML VIAL ONE (09:49)
[2019-07-21] MEDS: hydrALAZINE 25 MG TABLET PO SCH ×2 (10:25→20:39)
[2019-07-21] MEDS: LOSARTAN 25 MG TABLET PO SCH ×2 (10:25→20:39)
[2019-07-21] MEDS: SODIUM HYPOCHLORITE 0.25% IRRIG 473 ML BOTTLE TOP SCH (10:25)
[2019-07-21] MEDS: ASPIRIN EC 81 MG TABLET PO SCH (10:25)
[2019-07-21] MEDS: carvediloL 6.25 MG TABLET PO SCH ×2 (10:25→20:39)
[2019-07-21] MEDS: COLLAGENASE OINT 30 GM TUBE TOP SCH (10:26)
[2019-07-21] MEDS ORDERED: LACTATED RINGERS 1,000 ML IV SCH (11:00)
[2019-07-21] MEDS ORDERED: PHENYLEPHRINE 1 MG/10 ML SYRINGE IV ONE (11:48)
[2019-07-21] MEDS ORDERED: LIDOCAINE 2% 5 ML VIAL ONE (11:48)
[2019-07-21] MEDS ORDERED: fentaNYL 100 MCG/2 ML VIAL ONE (11:48)
[2019-07-21] MEDS ORDERED: SEVOFLURANE 1 UNIT/15 MINUTE INH ONE (11:48)
[2019-07-21] MEDS ORDERED: ONDANSETRON 4 MG/2 ML VIAL ONE (11:48)
[2019-07-21] MEDS ORDERED: propofoL 200 MG/20 ML VIAL IV ONE (11:48)
[2019-07-21] MEDS: PANTOPRAZOLE 40 MG TABLET PO SCH ×2 (13:36→20:39)
[2019-07-21] MEDS: DOCUSATE/SENNA 50-8.6 MG TABLET PO SCH ×2 (13:36→20:39)
[2019-07-21] MEDS: FOLIC ACID 1 MG TABLET PO SCH (13:36)
[2019-07-21] MEDS: TAMSULOSIN 0.4 MG CAPSULE PO SCH (13:36)
[2019-07-21] MEDS: levETIRAcetam 500 MG TABLET PO SCH ×2 (13:36→20:39)
[2019-07-21] MEDS: ATORVASTATIN 80 MG TABLET PO SCH (20:39)
[2019-07-21] MEDS: ZALEPLON 5 MG CAPSULE PO PRN (20:39)
[2019-07-22] MEDS: VANCOMYCIN INJ 1,000 MG in SODIUM CHLORIDE 0.9% 250 ML IV SCH ×2 (00:46→14:06)
[2019-07-22] MEDS: PIPERACILLIN/TAZOBACTAM 3,375 MG in SODIUM CHLORIDE 0.9% 100 ML IV SCH ×3 (04:20→20:27)
[2019-07-22 06:41] LABS: Basophils # 0.1 10*3/uL (0.0-0.2); Basophils % 0.7 % (0.0-0.8); Eosinophils # 0.5 10*3/uL (0.0-0.87); Eosinophils % 4.1 % (0.00-10.9); Hematocrit 28.1 VOL% (42.0-52.0); Hemoglobin 8.5 GM/DL (14.0-18.0); Immature Granulocytes % 0.4 %; Immature Granulocytes Absolute 0.05 #; Lymphocytes # 2.5 10*3/uL (1.4-4.0); Lymphocytes % 22.1 % (21.2-54.2); Mean Corpuscular HGB Conc 30.2 GM/DL (32-36); Mean Corpuscular Volume 84.6 FL (87-102); Mean Platelet Volume 10.1 FL (9.6-12.0); Neutrophils % 64.7 % (38.7-73.9); Platelet Count 409 T/CUMM (130-400); Red Blood Count 3.32 MC/CUMM (3.8-5.5); Red Cell Distribution Width 15.7 % (9.3-17.3); White Blood Count 11.4 T/CUMM (4-12)
[2019-07-22 06:55] LABS: Calcium 8.3 MG/DL (8.5-10.1); Osmolality,Calculated 264.2 MOS/KG (273-304)
[2019-07-22] MEDS: DOCUSATE/SENNA 50-8.6 MG TABLET PO SCH ×2 (08:20→20:28)
[2019-07-22] MEDS: LOSARTAN 25 MG TABLET PO SCH ×2 (08:21→20:28)
[2019-07-22] MEDS: FOLIC ACID 1 MG TABLET PO SCH (08:21)
[2019-07-22] MEDS: levETIRAcetam 500 MG TABLET PO SCH ×2 (08:21→20:28)
[2019-07-22] MEDS: hydrALAZINE 25 MG TABLET PO SCH ×2 (08:21→20:28)
[2019-07-22] MEDS: TAMSULOSIN 0.4 MG CAPSULE PO SCH (08:21)
[2019-07-22] MEDS: PANTOPRAZOLE 40 MG TABLET PO SCH ×2 (08:21→20:28)
[2019-07-22] MEDS: ASPIRIN EC 81 MG TABLET PO SCH (08:22)
[2019-07-22] MEDS: carvediloL 6.25 MG TABLET PO SCH ×2 (08:22→20:28)
[2019-07-22] MEDS: INSULIN LISPRO 100 UNIT/ML SUBCUT SCH ×4 (08:22→21:44)
[2019-07-22] MEDS: COLLAGENASE OINT 30 GM TUBE TOP SCH (08:23)
[2019-07-22] MEDS ORDERED: MAGNESIUM SULF RIDER 4 GM in PREMIX 1 EACH IV PRN (08:28)
[2019-07-22] MEDS: SODIUM HYPOCHLORITE 0.25% IRRIG 473 ML BOTTLE TOP SCH (09:43)
[2019-07-22] MEDS: POTASSIUM CHLORIDE RIDER 10 MEQ in PREMIX 1 EACH IV PRN ×3 (10:28→12:30)
[2019-07-22] MEDS: MAGNESIUM SULF RIDER 2 GM in PREMIX 1 EACH IV PRN (10:29)
[2019-07-22] MEDS: ATORVASTATIN 80 MG TABLET PO SCH (20:28)
[2019-07-23] MEDS: VANCOMYCIN INJ 1,000 MG in SODIUM CHLORIDE 0.9% 250 ML IV SCH ×3 (02:27→17:34)
[2019-07-23] MEDS: PIPERACILLIN/TAZOBACTAM 3,375 MG in SODIUM CHLORIDE 0.9% 100 ML IV SCH ×3 (05:10→21:43)
[2019-07-23 06:04] LABS: Calcium 8.2 MG/DL (8.5-10.1); Osmolality,Calculated 271.7 MOS/KG (273-304)
[2019-07-23 06:11] LABS: Basophils # 0.1 10*3/uL (0.0-0.2); Basophils % 0.7 % (0.0-0.8); Eosinophils # 0.5 10*3/uL (0.0-0.87); Eosinophils % 5.6 % (0.00-10.9); Hematocrit 24.5 VOL% (42.0-52.0); Hemoglobin 7.4 GM/DL (14.0-18.0); Immature Granulocytes % 0.6 %; Immature Granulocytes Absolute 0.05 #; Lymphocytes # 2.2 10*3/uL (1.4-4.0); Lymphocytes % 25.1 % (21.2-54.2); Mean Corpuscular HGB Conc 30.2 GM/DL (32-36); Mean Corpuscular Volume 85.1 FL (87-102); Mean Platelet Volume 10.1 FL (9.6-12.0); Platelet Count 392 T/CUMM (130-400); Red Blood Count 2.88 MC/CUMM (3.8-5.5); Red Cell Distribution Width 15.7 % (9.3-17.3); White Blood Count 8.7 T/CUMM (4-12)
[2019-07-23] MEDS: INSULIN LISPRO 100 UNIT/ML SUBCUT SCH ×4 (07:40→21:45)
[2019-07-23] MEDS: LOSARTAN 25 MG TABLET PO SCH ×2 (08:23→21:44)
[2019-07-23] MEDS: carvediloL 6.25 MG TABLET PO SCH ×2 (08:23→21:44)
[2019-07-23] MEDS: PANTOPRAZOLE 40 MG TABLET PO SCH ×2 (08:23→21:44)
[2019-07-23] MEDS: DOCUSATE/SENNA 50-8.6 MG TABLET PO SCH ×2 (08:24→21:44)
[2019-07-23] MEDS: hydrALAZINE 25 MG TABLET PO SCH ×2 (08:24→21:44)
[2019-07-23] MEDS: FOLIC ACID 1 MG TABLET PO SCH (08:24)
[2019-07-23] MEDS: ASPIRIN EC 81 MG TABLET PO SCH (08:24)
[2019-07-23] MEDS: TAMSULOSIN 0.4 MG CAPSULE PO SCH (08:24)
[2019-07-23] MEDS: levETIRAcetam 500 MG TABLET PO SCH ×2 (08:24→21:44)
[2019-07-23] MEDS: COLLAGENASE OINT 30 GM TUBE TOP SCH (09:33)
[2019-07-23] MEDS: POTASSIUM CHLORIDE RIDER 10 MEQ in PREMIX 1 EACH IV PRN ×3 (11:00→13:05)
[2019-07-23] MEDS: ATORVASTATIN 80 MG TABLET PO SCH (21:44)
[2019-07-23] MEDS: ZALEPLON 5 MG CAPSULE PO PRN (21:44)
[2019-07-23] MEDS: LACTULOSE 20 GM/30 ML UDCUP PO PRN (21:45)
[2019-07-24] MEDS: VANCOMYCIN INJ 1,000 MG in SODIUM CHLORIDE 0.9% 250 ML IV SCH ×2 (02:40→09:13)
[2019-07-24] MEDS: PIPERACILLIN/TAZOBACTAM 3,375 MG in SODIUM CHLORIDE 0.9% 100 ML IV SCH ×3 (05:18→23:24)
[2019-07-24 05:57] LABS: Basophils # 0.1 10*3/uL (0.0-0.2); Basophils % 0.9 % (0.0-0.8); Eosinophils # 0.5 10*3/uL (0.0-0.87); Eosinophils % 5.6 % (0.00-10.9); Hemoglobin 8.3 GM/DL (14.0-18.0); Immature Granulocytes % 0.4 %; Immature Granulocytes Absolute 0.03 #; Lymphocytes # 2.2 10*3/uL (1.4-4.0); Lymphocytes % 26.7 % (21.2-54.2); Mean Corpuscular HGB Conc 29.6 GM/DL (32-36); Mean Corpuscular Volume 85.4 FL (87-102); Mean Platelet Volume 10.2 FL (9.6-12.0); Monocytes % 8.5 % (1.7-12.7); Neutrophils % 57.9 % (38.7-73.9); Platelet Count 414 T/CUMM (130-400); Red Blood Count 3.28 MC/CUMM (3.8-5.5); Red Cell Distribution Width 15.8 % (9.3-17.3); White Blood Count 8.2 T/CUMM (4-12)
[2019-07-24 06:34] LABS: Calcium 8.6 MG/DL (8.5-10.1); Osmolality,Calculated 277.3 MOS/KG (273-304)
[2019-07-24] MEDS: levETIRAcetam 500 MG TABLET PO SCH ×2 (09:12→22:11)
[2019-07-24] MEDS: TAMSULOSIN 0.4 MG CAPSULE PO SCH (09:12)
[2019-07-24] MEDS: ASPIRIN EC 81 MG TABLET PO SCH (09:12)
[2019-07-24] MEDS: FOLIC ACID 1 MG TABLET PO SCH (09:12)
[2019-07-24] MEDS: PANTOPRAZOLE 40 MG TABLET PO SCH ×2 (09:12→22:11)
[2019-07-24] MEDS: hydrALAZINE 25 MG TABLET PO SCH ×2 (09:12→22:11)
[2019-07-24] MEDS: carvediloL 6.25 MG TABLET PO SCH ×2 (09:12→22:11)
[2019-07-24] MEDS: DOCUSATE/SENNA 50-8.6 MG TABLET PO SCH ×2 (09:12→22:11)
[2019-07-24] MEDS: LOSARTAN 25 MG TABLET PO SCH ×2 (09:12→22:11)
[2019-07-24] MEDS: INSULIN LISPRO 100 UNIT/ML SUBCUT SCH ×4 (09:12→21:10)
[2019-07-24] MEDS: COLLAGENASE OINT 30 GM TUBE TOP SCH (09:14)
[2019-07-24] MEDS: ATORVASTATIN 80 MG TABLET PO SCH (22:10)
[2019-07-24] MEDS: ZALEPLON 5 MG CAPSULE PO PRN (22:11)
[2019-07-25 05:48] LABS: Basophils # 0.1 10*3/uL (0.0-0.2); Basophils % 0.9 % (0.0-0.8); Eosinophils # 0.5 10*3/uL (0.0-0.87); Eosinophils % 5.8 % (0.00-10.9); Hematocrit 25.9 VOL% (42.0-52.0); Hemoglobin 7.8 GM/DL (14.0-18.0); Immature Granulocytes % 0.4 %; Immature Granulocytes Absolute 0.03 #; Lymphocytes % 26.3 % (21.2-54.2); Mean Corpuscular HGB Conc 30.1 GM/DL (32-36); Mean Corpuscular Volume 84.1 FL (87-102); Mean Platelet Volume 9.8 FL (9.6-12.0); Monocytes % 7.4 % (1.7-12.7); Neutrophils % 59.2 % (38.7-73.9); Platelet Count 417 T/CUMM (130-400); Red Blood Count 3.08 MC/CUMM (3.8-5.5); Red Cell Distribution Width 15.8 % (9.3-17.3); White Blood Count 7.8 T/CUMM (4-12)
[2019-07-25 06:09] LABS: Calcium 8.5 MG/DL (8.5-10.1); Osmolality,Calculated 276.3 MOS/KG (273-304)
[2019-07-25 06:13] LABS: Hypochromasia 1+; Platelet Estimate Adequate
[2019-07-25] MEDS: PIPERACILLIN/TAZOBACTAM 3,375 MG in SODIUM CHLORIDE 0.9% 100 ML IV SCH ×3 (06:56→23:11)
[2019-07-25] MEDS: INSULIN LISPRO 100 UNIT/ML SUBCUT SCH ×4 (07:56→21:38)
[2019-07-25] MEDS: POTASSIUM CHLORIDE RIDER 10 MEQ in PREMIX 1 EACH IV PRN ×4 (08:38→12:44)
[2019-07-25] MEDS: LOSARTAN 25 MG TABLET PO SCH ×2 (09:54→20:32)
[2019-07-25] MEDS: PANTOPRAZOLE 40 MG TABLET PO SCH ×2 (09:54→20:33)
[2019-07-25] MEDS: hydrALAZINE 25 MG TABLET PO SCH ×2 (09:54→20:33)
[2019-07-25] MEDS: ASPIRIN EC 81 MG TABLET PO SCH (09:54)
[2019-07-25] MEDS: FOLIC ACID 1 MG TABLET PO SCH (09:54)
[2019-07-25] MEDS: DOCUSATE/SENNA 50-8.6 MG TABLET PO SCH ×2 (09:54→20:33)
[2019-07-25] MEDS: carvediloL 6.25 MG TABLET PO SCH ×2 (09:54→20:33)
[2019-07-25] MEDS: TAMSULOSIN 0.4 MG CAPSULE PO SCH (09:55)
[2019-07-25] MEDS: levETIRAcetam 500 MG TABLET PO SCH ×2 (09:55→20:32)
[2019-07-25] MEDS: COLLAGENASE OINT 30 GM TUBE TOP SCH (11:27)
[2019-07-25] MEDS: SODIUM HYPOCHLORITE 0.25% IRRIG 473 ML BOTTLE TOP SCH (13:45)
[2019-07-25] MEDS: MAGNESIUM SULF RIDER 2 GM in PREMIX 1 EACH IV PRN (17:22)
[2019-07-25] MEDS: ATORVASTATIN 80 MG TABLET PO SCH (20:33)
[2019-07-26 04:58] LABS: Basophils # 0.1 10*3/uL (0.0-0.2); Eosinophils # 0.5 10*3/uL (0.0-0.87); Eosinophils % 5.4 % (0.00-10.9); Hematocrit 27.7 VOL% (42.0-52.0); Hemoglobin 8.5 GM/DL (14.0-18.0); Immature Granulocytes % 0.4 %; Immature Granulocytes Absolute 0.03 #; Lymphocytes # 2.3 10*3/uL (1.4-4.0); Lymphocytes % 27.1 % (21.2-54.2); Mean Corpuscular HGB Conc 30.7 GM/DL (32-36); Mean Corpuscular Volume 82.9 FL (87-102); Mean Platelet Volume 9.7 FL (9.6-12.0); Monocytes % 7.3 % (1.7-12.7); Neutrophils % 58.8 % (38.7-73.9); Platelet Count 458 T/CUMM (130-400); Red Blood Count 3.34 MC/CUMM (3.8-5.5); Red Cell Distribution Width 15.8 % (9.3-17.3); White Blood Count 8.4 T/CUMM (4-12)
[2019-07-26 05:23] LABS: Calcium 8.4 MG/DL (8.5-10.1); Osmolality,Calculated 273.5 MOS/KG (273-304)
[2019-07-26] MEDS: POTASSIUM CHLORIDE RIDER 10 MEQ in PREMIX 1 EACH IV PRN (05:44)
[2019-07-26] MEDS: INSULIN LISPRO 100 UNIT/ML SUBCUT SCH ×4 (07:50→22:01)
[2019-07-26] MEDS: ASPIRIN EC 81 MG TABLET PO SCH (08:42)
[2019-07-26] MEDS: DOCUSATE/SENNA 50-8.6 MG TABLET PO SCH ×2 (08:42→20:26)
[2019-07-26] MEDS: TAMSULOSIN 0.4 MG CAPSULE PO SCH (08:42)
[2019-07-26] MEDS: LOSARTAN 25 MG TABLET PO SCH ×2 (08:42→20:26)
[2019-07-26] MEDS: PIPERACILLIN/TAZOBACTAM 3,375 MG in SODIUM CHLORIDE 0.9% 100 ML IV SCH (08:42)
[2019-07-26] MEDS: carvediloL 6.25 MG TABLET PO SCH ×2 (08:43→20:26)
[2019-07-26] MEDS: hydrALAZINE 25 MG TABLET PO SCH ×2 (08:43→20:27)
[2019-07-26] MEDS: FOLIC ACID 1 MG TABLET PO SCH (08:43)
[2019-07-26] MEDS: SODIUM HYPOCHLORITE 0.25% IRRIG 473 ML BOTTLE TOP SCH (08:43)
[2019-07-26] MEDS: levETIRAcetam 500 MG TABLET PO SCH ×2 (08:43→20:27)
[2019-07-26] MEDS: PANTOPRAZOLE 40 MG TABLET PO SCH ×2 (08:43→20:27)
[2019-07-26] MEDS ORDERED: FUROSEMIDE 20 MG/2 ML VIAL IV ONE (14:20)
[2019-07-26] MEDS: ATORVASTATIN 80 MG TABLET PO SCH (20:27)
[2019-07-27 05:20] LABS: Basophils # 0.1 10*3/uL (0.0-0.2); Basophils % 0.8 % (0.0-0.8); Eosinophils # 0.5 10*3/uL (0.0-0.87); Eosinophils % 5.2 % (0.00-10.9); Hematocrit 29.2 VOL% (42.0-52.0); Hemoglobin 8.6 GM/DL (14.0-18.0); Immature Granulocytes % 0.3 %; Immature Granulocytes Absolute 0.03 #; Lymphocytes # 2.6 10*3/uL (1.4-4.0); Lymphocytes % 29.1 % (21.2-54.2); Mean Corpuscular HGB Conc 29.5 GM/DL (32-36); Mean Corpuscular Volume 84.6 FL (87-102); Mean Platelet Volume 10.1 FL (9.6-12.0); Monocytes % 6.3 % (1.7-12.7); Neutrophils % 58.3 % (38.7-73.9); Platelet Count 414 T/CUMM (130-400); Red Blood Count 3.45 MC/CUMM (3.8-5.5); Red Cell Distribution Width 15.9 % (9.3-17.3)
[2019-07-27 06:06] LABS: Calcium 8.9 MG/DL (8.5-10.1); Osmolality,Calculated 275.4 MOS/KG (273-304)
[2019-07-27] MEDS: TAMSULOSIN 0.4 MG CAPSULE PO SCH (08:43)
[2019-07-27] MEDS: levETIRAcetam 500 MG TABLET PO SCH ×2 (08:43→20:40)
[2019-07-27] MEDS: carvediloL 6.25 MG TABLET PO SCH ×2 (08:43→20:39)
[2019-07-27] MEDS: DOCUSATE/SENNA 50-8.6 MG TABLET PO SCH ×2 (08:43→20:39)
[2019-07-27] MEDS: FOLIC ACID 1 MG TABLET PO SCH (08:43)
[2019-07-27] MEDS: PANTOPRAZOLE 40 MG TABLET PO SCH ×2 (08:43→20:40)
[2019-07-27] MEDS: POTASSIUM CHLORIDE RIDER 10 MEQ in PREMIX 1 EACH IV PRN (08:43)
[2019-07-27] MEDS: ASPIRIN EC 81 MG TABLET PO SCH (08:43)
[2019-07-27] MEDS: hydrALAZINE 25 MG TABLET PO SCH ×2 (08:43→20:39)
[2019-07-27] MEDS: LOSARTAN 25 MG TABLET PO SCH ×2 (08:43→20:40)
[2019-07-27] MEDS: INSULIN LISPRO 100 UNIT/ML SUBCUT SCH ×4 (08:44→22:01)
[2019-07-27] MEDS: SODIUM HYPOCHLORITE 0.25% IRRIG 473 ML BOTTLE TOP SCH (08:44)
[2019-07-27] MEDS: ATORVASTATIN 80 MG TABLET PO SCH (20:39)
[2019-07-27] MEDS: POTASSIUM CHLORIDE 20 MEQ/15 ML UDCUP PER TUBE PRN ×2 (20:40→22:41)
[2019-07-28] MEDS: POTASSIUM CHLORIDE 20 MEQ/15 ML UDCUP PER TUBE PRN (00:50)
[2019-07-28 04:52] LABS: Basophils # 0.1 10*3/uL (0.0-0.2); Eosinophils # 0.5 10*3/uL (0.0-0.87); Hematocrit 30.3 VOL% (42.0-52.0); Immature Granulocytes % 0.4 %; Immature Granulocytes Absolute 0.03 #; Lymphocytes # 2.4 10*3/uL (1.4-4.0); Lymphocytes % 28.8 % (21.2-54.2); Mean Corpuscular HGB Conc 29.7 GM/DL (32-36); Mean Corpuscular Volume 84.9 FL (87-102); Mean Platelet Volume 9.3 FL (9.6-12.0); Monocytes % 6.6 % (1.7-12.7); Neutrophils % 57.2 % (38.7-73.9); Platelet Count 470 T/CUMM (130-400); Red Blood Count 3.57 MC/CUMM (3.8-5.5); Red Cell Distribution Width 15.9 % (9.3-17.3); White Blood Count 8.3 T/CUMM (4-12)
[2019-07-28 05:09] LABS: Calcium 8.7 MG/DL (8.5-10.1); Osmolality,Calculated 279.4 MOS/KG (273-304)
[2019-07-28] MEDS: MAGNESIUM SULF RIDER 2 GM in PREMIX 1 EACH IV PRN (05:24)
[2019-07-28] MEDS: PANTOPRAZOLE 40 MG TABLET PO SCH ×2 (08:44→20:40)
[2019-07-28] MEDS: ACETAMINOPHEN 325 MG TABLET PO PRN (08:44)
[2019-07-28] MEDS: TAMSULOSIN 0.4 MG CAPSULE PO SCH (08:45)
[2019-07-28] MEDS: levETIRAcetam 500 MG TABLET PO SCH ×2 (08:45→20:41)
[2019-07-28] MEDS: hydrALAZINE 25 MG TABLET PO SCH ×2 (08:45→20:41)
[2019-07-28] MEDS: FOLIC ACID 1 MG TABLET PO SCH (08:45)
[2019-07-28] MEDS: carvediloL 6.25 MG TABLET PO SCH ×2 (08:45→20:40)
[2019-07-28] MEDS: LOSARTAN 25 MG TABLET PO SCH ×2 (08:45→20:40)
[2019-07-28] MEDS: DOCUSATE/SENNA 50-8.6 MG TABLET PO SCH ×2 (08:45→20:40)
[2019-07-28] MEDS: ASPIRIN EC 81 MG TABLET PO SCH (08:46)
[2019-07-28] MEDS: SODIUM HYPOCHLORITE 0.25% IRRIG 473 ML BOTTLE TOP SCH (08:46)
[2019-07-28] MEDS: INSULIN LISPRO 100 UNIT/ML SUBCUT SCH ×4 (08:46→20:41)
[2019-07-28] MEDS: ATORVASTATIN 80 MG TABLET PO SCH (20:40)
[2019-07-29 06:09] LABS: Basophils # 0.1 10*3/uL (0.0-0.2); Basophils % 1.3 % (0.0-0.8); Eosinophils # 0.5 10*3/uL (0.0-0.87); Eosinophils % 6.4 % (0.00-10.9); Hematocrit 28.6 VOL% (42.0-52.0); Hemoglobin 8.4 GM/DL (14.0-18.0); Immature Granulocytes % 0.2 %; Immature Granulocytes Absolute 0.02 #; Lymphocytes # 2.6 10*3/uL (1.4-4.0); Lymphocytes % 31.2 % (21.2-54.2); Mean Corpuscular HGB Conc 29.4 GM/DL (32-36); Mean Corpuscular Volume 86.4 FL (87-102); Mean Platelet Volume 9.7 FL (9.6-12.0); Monocytes % 6.7 % (1.7-12.7); Neutrophils % 54.2 % (38.7-73.9); Platelet Count 461 T/CUMM (130-400); Red Blood Count 3.31 MC/CUMM (3.8-5.5); Red Cell Distribution Width 15.8 % (9.3-17.3); White Blood Count 8.2 T/CUMM (4-12)
[2019-07-29 06:39] LABS: Calcium 8.6 MG/DL (8.5-10.1); Osmolality,Calculated 275.4 MOS/KG (273-304)
[2019-07-29] MEDS: INSULIN LISPRO 100 UNIT/ML SUBCUT SCH ×4 (08:12→21:17)
[2019-07-29] MEDS: LOSARTAN 25 MG TABLET PO SCH ×2 (08:53→21:16)
[2019-07-29] MEDS: TAMSULOSIN 0.4 MG CAPSULE PO SCH (08:53)
[2019-07-29] MEDS: levETIRAcetam 500 MG TABLET PO SCH ×2 (08:53→21:16)
[2019-07-29] MEDS: ASPIRIN EC 81 MG TABLET PO SCH (08:53)
[2019-07-29] MEDS: FOLIC ACID 1 MG TABLET PO SCH (08:53)
[2019-07-29] MEDS: DOCUSATE/SENNA 50-8.6 MG TABLET PO SCH ×2 (08:53→21:16)
[2019-07-29] MEDS: PANTOPRAZOLE 40 MG TABLET PO SCH ×2 (08:53→21:24)
[2019-07-29] MEDS: carvediloL 6.25 MG TABLET PO SCH ×2 (08:53→21:16)
[2019-07-29] MEDS: SODIUM HYPOCHLORITE 0.25% IRRIG 473 ML BOTTLE TOP SCH (08:54)
[2019-07-29] MEDS: hydrALAZINE 25 MG TABLET PO SCH ×2 (08:54→21:16)
[2019-07-29] MEDS: ATORVASTATIN 80 MG TABLET PO SCH (21:16)
[2019-07-30] MEDS: INSULIN LISPRO 100 UNIT/ML SUBCUT SCH ×4 (07:52→20:14)
[2019-07-30] MEDS: TAMSULOSIN 0.4 MG CAPSULE PO SCH (08:46)
[2019-07-30] MEDS: DOCUSATE/SENNA 50-8.6 MG TABLET PO SCH ×2 (08:46→21:27)
[2019-07-30] MEDS: LOSARTAN 25 MG TABLET PO SCH ×2 (08:46→21:28)
[2019-07-30] MEDS: ASPIRIN EC 81 MG TABLET PO SCH (08:46)
[2019-07-30] MEDS: hydrALAZINE 25 MG TABLET PO SCH ×2 (08:47→21:27)
[2019-07-30] MEDS: PANTOPRAZOLE 40 MG TABLET PO SCH ×2 (08:47→21:28)
[2019-07-30] MEDS: levETIRAcetam 500 MG TABLET PO SCH ×2 (08:47→21:28)
[2019-07-30] MEDS: SODIUM HYPOCHLORITE 0.25% IRRIG 473 ML BOTTLE TOP SCH (08:47)
[2019-07-30] MEDS: FOLIC ACID 1 MG TABLET PO SCH (08:47)
[2019-07-30] MEDS: carvediloL 6.25 MG TABLET PO SCH ×2 (08:47→21:28)
[2019-07-30] MEDS: ATORVASTATIN 80 MG TABLET PO SCH (21:28)
[2019-07-31] MEDS: INSULIN LISPRO 100 UNIT/ML SUBCUT SCH ×4 (07:51→20:28)
[2019-07-31] MEDS: DOCUSATE/SENNA 50-8.6 MG TABLET PO SCH ×2 (08:30→20:34)
[2019-07-31] MEDS: hydrALAZINE 25 MG TABLET PO SCH ×2 (08:30→20:27)
[2019-07-31] MEDS: PANTOPRAZOLE 40 MG TABLET PO SCH ×2 (08:31→20:27)
[2019-07-31] MEDS: TAMSULOSIN 0.4 MG CAPSULE PO SCH (08:31)
[2019-07-31] MEDS: ASPIRIN EC 81 MG TABLET PO SCH (08:31)
[2019-07-31] MEDS: levETIRAcetam 500 MG TABLET PO SCH ×2 (08:31→20:27)
[2019-07-31] MEDS: FOLIC ACID 1 MG TABLET PO SCH (08:31)
[2019-07-31] MEDS: carvediloL 6.25 MG TABLET PO SCH ×2 (08:31→20:27)
[2019-07-31] MEDS: SODIUM HYPOCHLORITE 0.25% IRRIG 473 ML BOTTLE TOP SCH (08:33)
[2019-07-31] MEDS: LOSARTAN 25 MG TABLET PO SCH ×2 (08:36→20:27)
[2019-07-31] MEDS: ATORVASTATIN 80 MG TABLET PO SCH (20:27)
[2019-08-01] MEDS: INSULIN LISPRO 100 UNIT/ML SUBCUT SCH ×4 (08:46→21:09)
[2019-08-01] MEDS: hydrALAZINE 25 MG TABLET PO SCH ×2 (08:55→21:08)
[2019-08-01] MEDS: ASPIRIN EC 81 MG TABLET PO SCH (08:55)
[2019-08-01] MEDS: levETIRAcetam 500 MG TABLET PO SCH ×2 (08:55→21:09)
[2019-08-01] MEDS: LOSARTAN 25 MG TABLET PO SCH ×2 (08:55→21:08)
[2019-08-01] MEDS: FOLIC ACID 1 MG TABLET PO SCH (08:55)
[2019-08-01] MEDS: DOCUSATE/SENNA 50-8.6 MG TABLET PO SCH ×2 (08:55→21:08)
[2019-08-01] MEDS: SODIUM HYPOCHLORITE 0.25% IRRIG 473 ML BOTTLE TOP SCH (08:55)
[2019-08-01] MEDS: PANTOPRAZOLE 40 MG TABLET PO SCH ×2 (08:55→21:09)
[2019-08-01] MEDS: carvediloL 6.25 MG TABLET PO SCH ×2 (08:55→21:09)
[2019-08-01] MEDS: TAMSULOSIN 0.4 MG CAPSULE PO SCH (08:55)
[2019-08-01] MEDS: LACTULOSE 20 GM/30 ML UDCUP PO PRN ×2 (11:43→21:09)
[2019-08-01] MEDS: ATORVASTATIN 80 MG TABLET PO SCH (21:08)
[2019-08-02 06:22] LABS: Basophils # 0.1 10*3/uL (0.0-0.2); Basophils % 0.9 % (0.0-0.8); Eosinophils # 0.3 10*3/uL (0.0-0.87); Eosinophils % 4.9 % (0.00-10.9); Hematocrit 29.7 VOL% (42.0-52.0); Hemoglobin 8.9 GM/DL (14.0-18.0); Immature Granulocytes % 0.3 %; Immature Granulocytes Absolute 0.02 #; Lymphocytes # 1.2 10*3/uL (1.4-4.0); Lymphocytes % 17.6 % (21.2-54.2); Mean Corpuscular Volume 83.4 FL (87-102); Mean Platelet Volume 11.1 FL (9.6-12.0); Monocytes % 7.8 % (1.7-12.7); Neutrophils % 68.5 % (38.7-73.9); Platelet Count 252 T/CUMM (130-400); Red Blood Count 3.56 MC/CUMM (3.8-5.5); Red Cell Distribution Width 15.9 % (9.3-17.3); White Blood Count 6.9 T/CUMM (4-12)
[2019-08-02 06:41] LABS: Calcium 8.6 MG/DL (8.5-10.1); Osmolality,Calculated 274.5 MOS/KG (273-304)
[2019-08-02] MEDS: LOSARTAN 25 MG TABLET PO SCH ×2 (08:34→21:22)
[2019-08-02] MEDS: DOCUSATE/SENNA 50-8.6 MG TABLET PO SCH ×2 (08:34→21:22)
[2019-08-02] MEDS: PANTOPRAZOLE 40 MG TABLET PO SCH ×2 (08:34→21:21)
[2019-08-02] MEDS: carvediloL 6.25 MG TABLET PO SCH ×2 (08:34→21:21)
[2019-08-02] MEDS: hydrALAZINE 25 MG TABLET PO SCH ×2 (08:34→21:22)
[2019-08-02] MEDS: levETIRAcetam 500 MG TABLET PO SCH ×2 (08:34→21:22)
[2019-08-02] MEDS: SODIUM HYPOCHLORITE 0.25% IRRIG 473 ML BOTTLE TOP SCH (08:34)
[2019-08-02] MEDS: ASPIRIN EC 81 MG TABLET PO SCH (08:34)
[2019-08-02] MEDS: FOLIC ACID 1 MG TABLET PO SCH (08:34)
[2019-08-02] MEDS: TAMSULOSIN 0.4 MG CAPSULE PO SCH (08:34)
[2019-08-02] MEDS: INSULIN LISPRO 100 UNIT/ML SUBCUT SCH ×4 (08:35→21:22)
[2019-08-02] MEDS: ATORVASTATIN 80 MG TABLET PO SCH (21:21)
[2019-08-03] MEDS: INSULIN LISPRO 100 UNIT/ML SUBCUT SCH ×4 (08:28→20:56)
[2019-08-03] MEDS: PANTOPRAZOLE 40 MG TABLET PO SCH ×2 (08:29→20:55)
[2019-08-03] MEDS: ASPIRIN EC 81 MG TABLET PO SCH (08:29)
[2019-08-03] MEDS: hydrALAZINE 25 MG TABLET PO SCH ×2 (08:29→20:55)
[2019-08-03] MEDS: levETIRAcetam 500 MG TABLET PO SCH ×2 (08:29→20:55)
[2019-08-03] MEDS: TAMSULOSIN 0.4 MG CAPSULE PO SCH (08:29)
[2019-08-03] MEDS: DOCUSATE/SENNA 50-8.6 MG TABLET PO SCH ×2 (08:29→20:56)
[2019-08-03] MEDS: FOLIC ACID 1 MG TABLET PO SCH (08:29)
[2019-08-03] MEDS: carvediloL 6.25 MG TABLET PO SCH ×2 (08:30→20:55)
[2019-08-03] MEDS: buPROPion XL 150 MG TABLET PO SCH (08:30)
[2019-08-03] MEDS: DULoxetine 30 MG CAPSULE PO SCH (08:30)
[2019-08-03] MEDS: LOSARTAN 25 MG TABLET PO SCH ×2 (08:30→20:55)
[2019-08-03] MEDS: SODIUM HYPOCHLORITE 0.25% IRRIG 473 ML BOTTLE TOP SCH (08:33)
[2019-08-03] MEDS: ATORVASTATIN 80 MG TABLET PO SCH (20:55)
[2019-08-04 07:33] VITALS: BP 155/64
[2019-08-04] MEDS: DULoxetine 30 MG CAPSULE PO SCH (08:29)
[2019-08-04] MEDS: carvediloL 6.25 MG TABLET PO SCH (08:29)
[2019-08-04] MEDS: DOCUSATE/SENNA 50-8.6 MG TABLET PO SCH (08:29)
[2019-08-04] MEDS: TAMSULOSIN 0.4 MG CAPSULE PO SCH (08:29)
[2019-08-04] MEDS: ASPIRIN EC 81 MG TABLET PO SCH (08:29)
[2019-08-04] MEDS: LOSARTAN 25 MG TABLET PO SCH (08:29)
[2019-08-04] MEDS: FOLIC ACID 1 MG TABLET PO SCH (08:30)
[2019-08-04] MEDS: PANTOPRAZOLE 40 MG TABLET PO SCH (08:30)
[2019-08-04] MEDS: INSULIN LISPRO 100 UNIT/ML SUBCUT SCH ×2 (08:32→13:23)
[2019-08-04] MEDS: levETIRAcetam 500 MG TABLET PO SCH (08:38)
[2019-08-04] MEDS: hydrALAZINE 25 MG TABLET PO SCH (08:38)
[2019-08-04] MEDS: buPROPion XL 150 MG TABLET PO SCH (08:38)
[2019-08-04] MEDS: SODIUM HYPOCHLORITE 0.25% IRRIG 473 ML BOTTLE TOP SCH (12:09)
== END 2019-08-04 16:05 | disposition home health service (06) | DRG 40 ==
LOC: EDUNIT# → EDBD → N.ED 15:19 → SUATTDRO 18:41 → N.EDINP 18:41 → N.TELES 19:23 → N.5E 07-17 17:29
PROVIDERS: ADMIT Internal Medicine; ATTEND Internal Medicine